=== PATIENT | female | born 1985 | race Caucasian/White ===

== ENCOUNTER 2024-01-22 14:59 | Outpatient (OUT) | payer MEDICAID, SELFPAY ==
[2024-01-22 15:18] LABS: Basophils Percent Auto 0.7 % (0.2-2.0); Eosinophils Percent Auto 0.7 % (0.9-7.0); Hematocrit 36.7 % (36.0-48.0); Hemoglobin 12.2 g/dL (12.0-16.0); Immature Granulocytes Abs Auto 0.02 10^3/uL (0.00-0.03); Immature Granulocytes Pct Auto 0.3 % (0.0-0.5); Lymphocytes Absolute Auto 1.8 10^3/uL (1.2-3.8); Lymphocytes Percent Auto 31.4 % (20.5-60.0); Mean Corpuscular HGB Conc 33.2 g/dL (29.9-35.2); Mean Corpuscular Hemoglobin 29.9 pg (26.7-34.0); Mean Platelet Volume 9.3 fL (9.5-13.5); Monocytes Absolute Auto 0.4 10^3/uL (0.3-0.8); Monocytes Percent Auto 7.4 % (1.7-12.0); Neutrophils Absolute Auto 3.5 10^3/uL (1.4-6.5); Neutrophils Percent Auto 59.5 % (43.0-75.0); Platelet Count 313 10^3/uL (150-450); Red Blood Count 4.08 10^6/uL (4.20-5.40); Red Cell Distribution Width 12.6 % (11.0-15.0); White Blood Count 5.8 10^3/uL (4.0-11.0)
[2024-01-22 15:43] LABS: INR 1.07; Partial Thromboplastin Time 28.5 sec (22.3-36.2); Prothrombin Time 11.3 sec (9.0-11.6)
[2024-01-22 16:27] LABS: Thyroid Stimulating Hormone 1.086 uIU/mL (0.358-3.740)
[2024-01-22 16:30] LABS: HCG Quantitative <1 mIU/mL
[2024-01-22 16:34] LABS: Estimated Average Glucose 103 mg/dL; Free T4 0.84 ng/dL (0.76-1.46); Glycohemoglobin A1C 5.2 % (4.5-6.2)
== END 2024-01-22 15:00 | disposition home or self-care (01) ==
LOC: LAB 15:02
PROVIDERS: PCP Nurse Practitioner Family; Visit Provider Obstetrics & Gynecology
DX: Z01.419 Encounter for gynecological examination (general) (routine) without abnormal findings (principal); N92.0 Excessive and frequent menstruation with regular cycle
CPT/HCPCS: 36415; 83036; 84439; 84443; 84702; 85025; 85610; 85730

== ENCOUNTER 2024-01-22 18:21 | Outpatient (REF) | payer MEDICAID, SELFPAY | END 2024-01-22 18:22 | disposition home or self-care (01) | LOC: LAB 18:21 | PROVIDERS: PCP Nurse Practitioner Family; Visit Provider Physician Assistant | DX: Z01.419 Encounter for gynecological examination (general) (routine) without abnormal findings (principal) | CPT/HCPCS: 88175 ==

== ENCOUNTER 2024-01-24 11:00 | Outpatient (OUT) | payer MEDICAID, SELFPAY ==
--- NOTE | 2024-01-24 11:03 | US_ITS ---
[address] [address] Patient Name: ALBINO DAVILA MRN: [id number] date: 1985 Sex: F Assigned Patient Location: US Current Patient Location: Accession/Order Number: [id number] Exam Date: 01/24/2024 11:05 Report Date: 01/27/2024 09:05 At the request of: PERLA MONTEIRO Procedure: US pelvis w/ transvaginal EXAMINATION: US pelvis w/ transvaginal HISTORY: Menorrhagia with regular cycle N92.0 COMPARISON: No relevant comparison available. TECHNIQUE: Transabdominal and/or transvaginal sonographic examination was performed as indicated by examination type. FINDINGS: UTERUS: Normal size and appearance. Uterus size: 10.0 x 4.7 x 7.2 cm ENDOMETRIUM: Slightly thickened and heterogeneous containing several small hyperechoic areas, possibly calcifications. Endometrial thickness: 19 mm RIGHT OVARY: Normal size and appearance. Duplex Doppler demonstrates normal waveform and flow; resistive index 0.6. Ovary size: 2.8 x 2.3 x 1.67 m LEFT OVARY: Normal size and appearance. Duplex Doppler demonstrates normal waveform and flow; resistive index 0.6. Ovary size: 3.5 x 2.3 x 1.3 cm CUL-DE-SAC: Unremarkable. No significant free fluid. BLADDER: Unremarkable. OTHER: None. US/US pelvis w/ transvaginal IMPRESSION: 1. Thickened heterogeneous endometrium; nonspecific. Endometrial hyperplasia? 2. Unremarkable ovaries. Electronically authenticated by: ROMI SMITH Date: 01/27/2024 09:05
--- OUTSIDE RECORDS SUMMARY | 2024-01-24 11:03 | XMS_ITS | CCD ---
Author Organization [facility] Care Team Providers Care Tray Drier Operator Name Role Phone Eli Collazo Unavailable RIA, DR ROMANO Primary Care Unavailable WEST, DR GORDY Garcia Attending Unavailable WEST, DR GORDY Garcia Consulting Unavailable WEST, DR GORDY Garcia Admitting Unavailable LUIS, ANDRZEJ Schulz Consulting Unavailable DRIFT, DR ROMANO Primary Care Unavailable KARMONICA ., DR COLINDRES Consulting Unavailabl e KARMONICA ., DR COLINDRES Admitting Unavailabl e KARMONICA ., DR COLINDRES Attending Unavailabl e HOUSE, DR ROMANO Primary Care Unavailable WEST, DR GORDY Garcia Admitting Unavailable WEST, DR GORDY Garcia Attending Unavailable WEST, DR GORDY Garcia Consulting Unavailable HOUSE, DR ROMANO Primary Care Unavailable WEST, DR GORDY Garcia Admitting Unavailable WEST, DR GORDY Garcia Attending Unavailable WEST, DR GORDY Garcia Consulting Unavailable LUIS, ANDRZEJ Schulz Consulting Unavailable DRIFT, DR ROMANO Primary Care Unavailable ANGE ., TORRES Attending Unavailable ANGE ., TORRES Admitting Unavailable ANGE ., TORRES Consulting Unavailable DRIFT, DR ROMANO Primary Care Unavailable DRIFT, DR ROMANO Attending Unavailable HOUSE, DR ROMANO Admitting Unavailable HOUSE, DR ROMANO Primary Care Unavailable WEST, DR GORDY Garcia Admitting Unavailable WEST, DR GORDY Garcia Attending Unavailable WEST, DR GORDY Garcia Consulting Unavailable HOUSE, DR ROMANO Primary Care Unavailable WEST, DR GORDY Garcia Admitting Unavailable WEST, DR GORDY Garcia Attending Unavailable WEST, DR OGRDY Garcia Consulting Unavailable LUIS, ANDRZEJ Schulz Consulting Unavailable HOUSE, DR ROMANO Primary Care Unavailable WEST, DR GORDY Garcia Admitting Unavailable WEST, DR GORDY Garcia Attending Unavailable WEST, DR GORDY Garcia Consulting Unavailable ANDRZEJ العلي Consulting Unavailable HOUSE, DR ROMANO Primary Care Unavailable WEST, DR GORDY Garcia Admitting Unavailable WEST, DR GORDY Garcia Attending Unavailable WEST, DR GORDY Garcia Consulting Unavailable LUIS, ANDRZEJ Schulz Consulting Unavailable HOUSE, DR ROMANO Primary Care Unavailable WEST, DR GORDY Garcia Attending Unavailable WEST, DR GORDY Garcia Consulting Unavailable WEST, DR GORDY Garcia Admitting Unavailable HOUSE, DR ROMANO Primary Care Unavailable WEST, DR GORDY Garcia Attending Unavailable WEST, DR GORDY Garcia Consulting Unavailable WEST, DR GORDY Garcia Admitting Unavailable HOUSE, DR ROMANO Primary Care Unavailable WEST, DR GORDY Garcia Admitting Unavailable WEST, DR GORDY Garcia Attending Unavailable WEST, DR GORDY Garcia Consulting Unavailable LUIS, ANDRZEJ Schulz Consulting Unavailable DRIFT, DR ROMANO Primary Care Unavailable WEST, DR GORDY Garcia Admitting Unavailable WEST, DR GORDY Garcia Attending Unavailable WEST, DR GORDY Garcia Consulting Unavailable LUIS, ANDRZEJ Schulz Consulting Unavailable DRIFT, DR ROMANO Primary Care Unavailable WEST, DR GORDY Garcia Attending Unavailable WEST, DR GORDY Garcia Admitting Unavailable WEST, DR GORDY Garcia Consulting Unavailable DRIFT, DR ROMANO Primary Care Unavailable WEST, DR GORDY Garcia Attending Unavailable WEST, DR GORDY Garica Admitting Unavailable HOUSE, DR ROMANO Primary Care Unavailable WEST, DR GORDY Garcia Attending Unavailable WEST, DR GORDY Garcia Admitting Unavailable WEST, DR GORDY Garcia Consulting Unavailable LUIS, ANDRZEJ Schulz Consulting Unavailable DRIFT, DR ROMANO Primary Care Unavailable WEST, DR GORDY Garcia Attending Unavailable WEST, DR GORDY Garcia Admitting Unavailable WEST, DR OGRDY Garcia Consulting Unavailable JAVIEREBMINH, ANDRZEJ Schulz Consulting Unavailable DRIFT, DR ROMANO Primary Care Unavailable WEST, DR GORDY Garcia Admitting Unavailable WEST, DR GORDY Garcia Attending Unavailable WEST, DR GORDY Garcia Consulting Unavailable LUIS, ANDRZEJ Schulz Consulting Unavailable Maria Luz Ford Unavailable OLEG GUERRA Attending Unavailable Allergies Allergy Classification Reported Allergen(s) Allergy Type Date of Onset Reaction(s) Facility (2 sources) Ciprofloxacin Drug Allergy rash [facility] Other (2 sources) Ciprofloxacin Drug Allergy 5 [facility] Repository Medications Current Medications Medication Drug Class(es) Dates Sig (Normalized) Sig (Original) benzoyl peroxide 0.05 mg/mg / clindamycin phosphate 0.012 mg/mg topical gel (1 source) Lincosamide Antibacterial Clindamycin Phos-Benzoyl Perox 1.2-5 % External for 30 Days Active Completed/Discontinued Medications Medication Drug Class(es) Dates Sig (Normalized) Sig (Original) sulfacetamide sodium 100 mg/ml topical lotion (1 source) Sulfonamide Antibacterial Sulfacetamide Sodium (Acne) 10 % APPLY TO FACE EVERY NIGHT External for 30 Days Not-Taking Problems Active Problems Problem Classification Problem Date Documented Da te Episodic/Chronic Other upper respiratory disease (1 source) Allergic rhinitis, unspecified Onset: 2 Resolved: 2 Chronic Other upper respiratory infections (3 sources) Acute upper respiratory infection, unspecified; Translations: [Acute pharyngitis, unspecified] Onset: 2 Resolved: 2 Episodic Phlebitis; thrombophlebitis and thromboembolism (9 sources) Phlebitis and thrombophlebitis of superficial vessels of right lower extremity; Translations: [Phlebitis and thrombophlebitis of superficial vessels of left lower extremity] Onset: 3 Episodic Unclassified (1 source) ACUTE CANDIDIASIS VULVA AND VAGINA; Translations: [ACUTE CANDIDIASIS VULVA AND VAGINA] Onset: 2 Varicose veins of lower extremity (5 sources) Varicose veins of bilateral lower extremities with pain; Translations: [VARICOSE VNS MIKE LOW EXTREM W/PAIN] Onset: 3 Episodic Past or Other Problems Problem Classification Problem Date Documented Date Episodic/Chronic Immunizations and screening for infectious disease (2 sources) Contact with and (suspected) exposure to other viral communicable diseases; Translations: [Encounter for screening for human papillomavirus (HPV)] Onset: 11-06-2021 Resolved: 11-06-2021 Episodic Inflammatory diseases of female pelvic organs (1 source) Inflammatory disease of cervix uteri; Translations: [INFLAMMATORY DISEASE CERVIX UTERI] Onset: 03-22-2022 Episodic Mycoses (1 source) Candidiasis of vulva and vagina; Translations: [CANDIDIASIS OF VULVA AND VAGINA] Onset: 03-22-2022 Episodic Other aftercare (4 sources) Encounter for surgical aftercare following surgery on the circulatory system; Translations: [ENC SURG AFTRCARE FLW SURG CIRC SYS] Onset: 07-01-2022 Episodic Other female genital disorders (1 source) Other specified noninflammatory disorders of vagina; Translations: [OTH SPEC NONINFLAMMATORY D/O VAGINA] Onset: 04-04-2022 Episodic Other inflammatory condition of skin (3 sources) Pruritus vulvae; Translations: [PRURITUS VULVAE] Onset: 03-20-2022 Episodic Other screening for suspected conditions (not mental disorders or infectious disease) (4 sources) Encounter for screening for malignant neoplasm of cervix; Translations: [ENC SCREENING MALIG NEOPLASM CERV] Onset: 04-02-2022 Episodic Screening and history of mental health and substance abuse codes (1 source) Personal history of nicotine dependence; Translations: [PERSONAL HISTORY OF NICOTINE DEPEND] Onset: 03-22-2022 Episodic Sprains and strains (4 sources) Strain of other muscles, fascia and tendons at shoulder and upper arm level, left arm, subsequent encounter; Translations: [STRN OTH MSC F TEND SHLDR UA LA SUB] Onset: 01-01-2022 Episodic Results Test Name Value Interpretation Reference Range Facility Quick Strepon 11-19-2022 S. pyogenes Org specific cx Ql (Throat) Negative [facility] App Other Quick Strep [facility] Other VC CONSULT FOLLOWUPon 2022 VC CONSULT FOLLOWUP Patient: ESDRAS DAVILA Exam Date: 10/23/2022 : 1985 Gender:F Ordering : DR GORDY KNOWLES M.D. Admission #: [id number] Family : Order #: [id number] CLICK HERE TO VIEW EXAM RADIOLOGY REPORT PROCEDURE: VEIN CENTER CONSULTATION FOLLOWUP VEIN CENTER - OFFICE VISIT FOLLOW UP COMPARISON: VC CONSULT FOLLOWUP, 10/07/2022. VC CONSULT FOLLOWUP, 09/30/2022. PROGRESS NOTES: The patient reports no significant problem following microfoam ablation. The patient did not require analgesics. The patient has worn compression stockings as directed. The patient has followed our recommendations to walk 20-30 minutes once or twice per day since the procedure. Physical exam demonstrates multiple thrombosed varicose veins. Few residual small veins noted. No areas of erythema or. The patient does have some hemosiderin staining. The patient was counseled on use of sun screen and sun avoidance to permanent staining. No active ulceration Review of the ultrasound performed the same day demonstrates occlusive thrombus extending throughout the treated right leg veins. A 15 cm segment of deep vein thrombus is identified within the anterior right posterior tibial vein. This was 1 of 2 posterior tibial veins. The thrombus was 8 cm from the popliteal junction. Given the significant distance from the popliteal junction, conservative treatment with 325 milligrams of enteric coated aspirin per day was recommended the patient with a follow-up ultrasound in 2 weeks. Patient was asked to call or return for any symptoms IMPRESSION: 1. Successful ablation of incompetent right leg varicose veins 2. Segment of deep vein thrombus in the right posterior tibial vein, 8 cm from the popliteal vein PLAN: 325 milligram enteric coated aspirin once per day Follow-up ultrasound in 2 weeks Nurse notes, history and physical were reviewed and confirmed, see attached forms. The nurse was present throughout the physical exam and consultation Dictated by: Gordy Knowles MD on 10/23/2022 at 15:10 Approved by: Gordy Knowles MD on 10/23/2022 at 15:16 Normal [facility] VC EXT VENOUS RT LIMITEDon 0 10-23-2022 VC EXT VENOUS RT LIMITED Patient: ALBINO DAVILA Exam Date: 10/23/2022 : 1985 Gender:F Ordering : DR GORDY KNOWLES M.D. Admission #: [id number] Family : Order #: [id number] CLICK HERE TO VIEW EXAM RADIOLOGY REPORT PROCEDURE: VEIN CENTER EXTREMITY VENOUS RIGHT LIMITED COMPARISON: VC EXT VENOUS RT LIMITED, 09/23/2022. VC EXT VENOUS RT LIMITED, 06/13/2022. INDICATIONS: Phlebitis and thrombophlebitis of superficial veins of right lower extremity I80.01 TECHNIQUE: Lower extremity low scale and Duplex Doppler evaluation of the deep venous system from the inguinal ligament through the calf veins. FINDINGS: REGION: Right lower extremity. THROMBI: Thrombus identified in the anterior posterior tibial vein measuring 15 cm in length, 8 cm from the saphenous popliteal junction. Additional thrombus related to injections COMPRESSIBILITY: Non-compressible segments corresponding thrombus. FLOW: Absent flow corresponding to thrombus OTHER: No patent varicose veins remain. *Exam performed in accordance with [facility] practice guidelines- Peripheral venous ultrasound, September 16, 2009. CONCLUSION: 15 cm length deep vein thrombus anterior of 2 posterior tibial veins, 8 cm from the popliteal junction Dictated by: Gordy Knowles MD on 10/23/2022 at 14:43 Approved by: Gordy Knowles MD on 10/23/2022 at 14:45 Normal [facility] VC INJ FOAM SCLERO W US MLTI on 10-14-2022 VC INJ FOAM SCLERO W US MLTI Patient: ALBINO DAVILA Exam Date: 10/14/2022 : 1985 Gender:F Ordering : DR GORDY KNOWLES M.D. Admission #: [id number] Family : Order #: [id number] CLICK HERE TO VIEW EXAM RADIOLOGY REPORT PROCEDURE: VEIN CENTER INJECTION FOAM SCLEROSING SOLUTION WITH ULTRASOUND MULTIPLE VEINS COMPARISON: VC INJ FOAM SCLERO W US MLTI, 10/01/2022. Pre-operative Diagnosis: CEAP class C2 venous insufficiency with pain, tenderness, edema and incompetent right great saphenous vein and varicose veins, chronic venous insufficiency right leg secondary to venous incompetence Post-operative Diagnosis: CEAP class C2 venous insufficiency with pain, tenderness, edema and incompetent right great saphenous vein and varicose veins, chronic venous insufficiency right leg secondary to venous incompetence Procedure Performed: 1. Ultrasound-guided microfoam chemical ablation with Varithena(r) 2. Intraoperative ultrasound guidance Physician: Gordy Knowles M.D. Anesthesia: None Indications for Procedure: 36 year old female. Muscle cramps and pain despite conservative medical therapy including medical compression stockings, exercise and analgesics. Prior procedures include endovenous laser ablation. Multiple incompetent varicosities of the right leg. Duplex scan showed reflux and enlarged diameters up to 7 mm. The patient underwent informed consent including management options where the complications of infection, bleeding, pain, and skin injury were discussed. Particular attention was spent discussing thrombus extension and deep vein thrombosis as well as the possibility of pulmonary embolus and treatment with oral or injectable blood thinners. Procedure: The patient walked to the procedure room. All applicable staff donned appropriate apparel. A procedure timeout was performed to confirm correct patient, correct extremity, correct procedure, and correct room set-up including presence of all applicable supplies, devices, and drugs. A duplex ultrasound, performed by myself confirmed the location and incompetence of right leg varicose veins and their course marked on the skin together with the dilated tributaries. The extent of treatment of the vein and the associated varicosities was determined through ultrasound mapping. The patient was placed on the operating room table. The limb was prepped. The skin was punctured with a butterfly needle through the skin with the venous access needle and advanced under ultrasound guidance. The target limb was positioned at 45 degrees of elevation in relation to the torso using a foam pad. The Varithena(r) canister was previously activated and the canister was primed and purged as required in the instructions for use. The following injections were made: 4 mL aliquot of Varithena(r) was drawn into a sterile syringe. Injection into a 5 mm varicose vein lateral mid right lower leg. 6 mL aliquot of Varithena(r) was drawn into a sterile syringe. Injection into a 7 mm varicose vein lateral distal medial right thigh 4 mL aliquot of Varithena(r) was drawn into a sterile syringe. Injection into a 4mm varicose vein medial distal right lower leg. Varithena(r) was slowly administered at 0.5-1.0 cc/second with close observation by ultrasound of its course in the injected veins. A total volume of 14 mL of Varithena(r) was used. During administration of Varithena(r), the patient was asked to dorsiflex the ankle to limit flow of Varithena(r) into perforating veins. Once appropriate spasm had been confirmed in the treated veins, the vascular catheter was removed from the leg and light pressure was applied over the puncture site for hemostasis The common femoral and deep superficial veins were then evaluated for flow and compressibility prior to dressing placement. The lower extremity was kept elevated at 45 degrees above the horizontal and cording material was applied over the saphenous segments and tributaries to allow for eccentric compression over the target vessels including the targeted saphenous vein(s). A multilayer dressing was applied consisting of foam pads, coban and thigh-high 20-30 mm Hg compression elastic support hose were placed on the patient. The leg was lowered only after compression had been applied and the patient was immediately ambulatory. The patient ambulated 10 minutes under supervision and was without apparent concerns at time of release Post-care instructions include advising patient to keep post-treatment bandages in place and dry for 48 hours, avoid extended periods of inactivity, avoid heavy exercise for one week, wear compression stockings on the treated leg continuously for two weeks, to walk daily for 10 minutes over the next month. The patient was instructed to take an anti-inflammatory medicine as needed and to follow up for color duplex scan of the GSV, the treated superficial varices, the adjacent deep veins, and tom (more content not included)... Normal [facility] VC CONSULT FOLLOWUPon 2022 VC CONSULT FOLLOWUP Patient: ESDRAS DAVILARyanne Exam Date: 10/07/2022 : 1985 Gender:F Ordering : DR GORDY KNOWLES M.D. Admission #: [id number] Family : Order #: [id number] CLICK HERE TO VIEW EXAM RADIOLOGY REPORT PROCEDURE: VEIN CENTER CONSULTATION FOLLOWUP VEIN CENTER - OFFICE VISIT FOLLOW UP COMPARISON: VC CONSULT FOLLOWUP, 09/30/2022. VC CONSULT FOLLOWUP, 09/23/2022. PROGRESS NOTES: The patient reports no significant problems following micro foam chemical ablation of the left leg. Patient did not require oral analgesics. The patient has worn her compression stockings. The patient has followed our recommendations to walk 20-30 minutes once or twice per day since the procedure. The patient reports significant improvement in left leg symptoms compared to her initial presentation. The patient does complain of a persistent varicose vein along the anterior left thigh and knee. Review of the ultrasound performed the same day demonstrates occlusive thrombus extending throughout the treated left leg varicose veins with a residual varicose vein measuring 3.7 mm. The patient expressed a desire to proceed with treatment of varicose veins with micro foam chemical ablation. IMPRESSION: 1. Successful ablation of incompetent left leg varicose veins 2. Persistent incompetent bilateral varicose veins PLAN: Micro foam chemical ablation right leg incompetent varicose veins Nurse notes, history and physical were reviewed and confirmed, see attached forms. The nurse was present throughout the physical exam and consultation Dictated by: Gordy Knowles MD on 10/07/2022 at 08:46 Approved by: Gordy Knowles MD on 10/07/2022 at 08:52 Normal [facility] VC EXT VENOUS LT LIMITEDon 0 10-07-2022 VC EXT VENOUS LT LIMITED Patient: ALBINO DAVILA Exam Date: 10/07/2022 : 1985 Gender:F Ordering : DR GORDY KNOWLES M.D. Admission #: [id number] Family : Order #: [id number] CLICK HERE TO VIEW EXAM RADIOLOGY REPORT PROCEDURE: VEIN CENTER EXTREMITY VENOUS LEFT LIMITED COMPARISON: VC EXT VENOUS LT LIMITED, 09/30/2022. VC EXT VENOUS LT LIMITED, 09/16/2022. INDICATIONS: Phlebitis of superficial veins of lower extremity I80.02 TECHNIQUE: Lower extremity low scale and Duplex Doppler evaluation of the deep venous system from the inguinal ligament through the calf veins. FINDINGS: REGION: Left lower extremity. THROMBI: Negative for DVT. Varithena induced thrombus visualized at anterior knee and mid/medial thigh. COMPRESSIBILITY: Non-compressible segments corresponding to thrombus. FLOW: Absent flow corresponding to thrombus OTHER: Patent varicose vein at prox/med calf 3.7mm with 0.8s reflux. *Exam performed in accordance with [facility] practice guidelines- Peripheral venous ultrasound, September 16, 2009. CONCLUSION: Post ablation occlusion of treated left leg varicose veins Dictated by: Gordy Knowles MD on 10/07/2022 at 08:13 Approved by: Gordy Knowles MD on 10/07/2022 at 08:14 Normal [facility] VC INJ FOAM SCLERO W US MLTI on 10-01-2022 VC INJ FOAM SCLERO W US MLTI Patient: ALBINO DAVILA Exam Date: 10/01/2022 : 1985 Gender:F Ordering : DR GORDY KNOWLES M.D. Admission #: [id number] Family : Order #: [id number] CLICK HERE TO VIEW EXAM RADIOLOGY REPORT PROCEDURE: VEIN CENTER INJECTION FOAM SCLEROSING SOLUTION WITH ULTRASOUND MULTIPLE VEINS COMPARISON: VC COMP CONSULTATION, 05/15/2022. Pre-operative Diagnosis: CEAP class C2 venous insufficiency with pain, tenderness, edema and incompetent branch saphenous vein, chronic venous insufficiency left leg secondary to venous incompetence Post-operative Diagnosis: CEAP class C2 venous insufficiency with pain, tenderness, edema and incompetent branch saphenous vein, chronic venous insufficiency left leg secondary to venous incompetence Procedure Performed: 1. Ultrasound-guided microfoam chemical ablation with Varithena(r) 2. Intraoperative ultrasound guidance Physician: Andrzej العلي M.D. Anesthesia: None. Indications for Procedure: 36 year old female. Symptoms including muscle cramping, dilated veins for many years despite conservative medical therapy including medical compression stockings, exercise and analgesics. Prior procedures include: Endovenous laser ablation. Multiple incompetent varicosities of the left leg. Duplex scan showed reflux and enlarged diameters up to 4 mm. The patient has undergone informed consent including management options where the complications of infection, bleeding, pain, and skin injury were discussed. Particular attention was spent discussing thrombus extension and deep vein thrombosis as well as the possibility of pulmonary embolus and treatment with oral or injectable blood thinners. Procedure: The patient walked to the procedure room. All applicable staff donned appropriate apparel. A procedure timeout was performed to confirm correct patient, correct extremity, correct procedure, and correct room set-up including presence of all applicable supplies, devices, and drugs. A duplex ultrasound, performed by myself confirmed the location and incompetence of branch saphenous varicosities and their course was marked on the skin together with the dilated tributaries. The extent of treatment of the veins and the associated varicosities was determined through ultrasound mapping. The skin was prepped and then punctured with a butterfly needle and advanced under ultrasound guidance. The Varithena(r) canister was activated and the canister was primed and purged as required in the instructions for use. Varithena(r) was drawn into a sterile syringe. Varithena(r) was slowly administered at 0.5-1.0 cc/second with close observation by ultrasound of its course in the vessels. Total volume utilized was: 8 mL (4 Negrita within a 3 mm incompetent varicosity anterior to the knee; 4 Negrita within a 4 mm varicosity anterior medial mid left thigh). Following administration of Varithena(r), the leg was elevated and the patient was asked to repeatedly dorsiflex the ankle to limit flow of Varithena(r) into perforating veins. Once appropriate spasm had been confirmed in the treated veins, the vascular catheter was removed from the leg and light pressure was applied over the puncture site for hemostasis The common femoral and deep superficial veins were then evaluated for flow and compressibility prior to dressing placement. The lower extremity was kept elevated at 45 degrees above the horizontal and cording material was applied over the saphenous segments and tributaries to allow for eccentric compression over the target vessels including the targeted saphenous vein(s). A multilayer dressing was applied consisting of foam pads, coban and thigh-high 20-30 mm Hg compression elastic support hose were placed on the patient. The leg was lowered only after compression had been applied and the patient was immediately ambulatory. The patient ambulated 10 minutes under supervision and was without apparent concerns at time of release Post-care instructions include advising patient to keep post-treatment bandages in place and dry for 48 hours, avoid extended periods of inactivity, avoid heavy exercise for one week, wear compression stockings on the treated leg continuously for two weeks, to walk daily for 10 minutes over the next month. The patient was instructed to take an anti-inflammatory medicine as needed and to follow up for color duplex scan of the Saphenous veins, the treated branch saphenous varicosities, the adjacent deep veins, and additional treatment within 7 days. PERSONNEL: Estrada Campos R.N. Dictated by: Andrzej العلي M.D. on 10/01/2022 at 12:00 Approved by: Andrzej العلي M.D. on 10/01/2022 at 12:03 Normal [facility] VC CONSULT FOLLOWUPon 2022 VC CONSULT FOLLOWUP Patient: ESDRAS DAVILA Exam Date: 09/30/2022 : 1985 Gender:F Ordering : DR GORDY KNOWLES M.D. Admission #: [id number] Family : Order #: [id number] CLICK HERE TO VIEW EXAM RADIOLOGY REPORT PROCEDURE: VEIN CENTER CONSULTATION FOLLOWUP VEIN CENTER - OFFICE VISIT FOLLOW UP COMPARISON: VC CONSULT FOLLOWUP, 09/23/2022. PROGRESS NOTES: The patient reports improvement in bilateral leg symptoms. There has been interval reduction in varicosities. The patient has followed our recommendations to walk 20-30 minutes once or twice per day since the procedure. Physical exam demonstrates decrease in varicosities of the bilateral legs. Persistent superficial varicosities are identified along the legs bilaterally. Review of the ultrasound performed the same day demonstrates occlusive thrombus extending throughout the treated vein, see separate report, consistent with a successful ablation. No thrombus extending into or beyond the saphenofemoral junction. The patient expressed a desire to proceed with treatment of incompetent branch saphenous varicosities. The patient was informed that treatment was a process and would require several procedures/sessions. IMPRESSION: 1. Successful ablation of the left small saphenous vein 2. 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 Nurse notes, history and physical were reviewed and confirmed, see attached forms. The nurse was present throughout the physical exam and consultation Dictated by: Andrzej العلي M.D. on 09/30/2022 at 14:22 Approved by: Andrzej العلي M.D. on 09/30/2022 at 14:24 Normal [facility] VC EXT VENOUS LT LIMITEDon 0 09-30-2022 VC EXT VENOUS LT LIMITED Patient: ALBINO DAVILA Exam Date: 09/30/2022 : 1985 Gender:F Ordering : DR GORDY KNOWLES M.D. Admission #: [id number] Family : Order #: [id number] CLICK HERE TO VIEW EXAM RADIOLOGY REPORT PROCEDURE: VEIN CENTER EXTREMITY VENOUS LEFT LIMITED COMPARISON: VC EXT VENOUS LT LIMITED, 09/16/2022. INDICATIONS: Phlebitis and thrombophlebitis of superficial veins of left lower extremity I80.02 TECHNIQUE: Lower extremity low scale and Duplex Doppler evaluation of the deep venous system from the inguinal ligament through the calf veins. FINDINGS: REGION: Left lower extremity. THROMBI: Negative for DVT. Heat induced thrombus in left SSV 3.3 mm from SPJ and extends to mid calf at insert. COMPRESSIBILITY: Non-compressible segments. FLOW: Areas of no flow. OTHER: CONCLUSION: 1. Successful post ablation occlusion of left small saphenous vein. Dictated by: Andrzej العلي M.D. on 09/30/2022 at 14:21 Approved by: Andrzej العلي M.D. on 09/30/2022 at 14:22 Normal [facility] VC ENDOVENOUS ABL 1ST V LTon 09-27-2022 VC ENDOVENOUS ABL 1ST V LT Patient: ALBINO DAVILA Exam Date: 09/27/2022 : 1985 Gender:F Ordering : DR GORDY KNOWLES M.D. Admission #: [id number] Family : Order #: [id number] CLICK HERE TO VIEW EXAM RADIOLOGY REPORT PROCEDURE: VEIN CENTER ENDOVENOUS ABLATION FIRST VEIN LEFT SMALL SAPHENOUS VEIN COMPARISON: VC ENDOVENOUS ABL 1ST V LT, 09/10/2022. VC ENDOVENOUS ABL 1ST V LT, 06/28/2022. INDICATIONS: Pain co-occurrent and due to varicose veins of bilateral legs I83.813 OPERATIVE REPORT: The risks and benefits of the procedure had been previously discussed, and were rediscussed at length. Informed written consent was obtained by and Estrada mina. Time out procedure was performed. The left lower extremity was prepared and draped in the usual sterile fashion. Duplex ultrasound probe was draped in a sterile cover, sterile transmission gel was used. Venous mapping was performed with the areas of dilation and large tributaries marked. The total length was 25 cm from the entry 3 cm above the lateral malleolus to where the vein begins to dive deep into the popliteal. The diameter of the small saphenous vein ranged from 5-7 mm. A 30 gauge needle and 1% buffered lidocaine was used to anesthetize the entry site. A 4 mm incision was made with a scalpel and the saphenous vein was entered percutaneously under direct ultrasound guidance with a micropuncture set, a single stick was successful in gaining access. A micro-guide wire was inserted and the needle removed. A micro-set including a dilator was inserted over the microwire and the needle and dilator were removed. A 0.018 guide wire was inserted through the micro-set and threaded through the saphenous vein. The dilator was removed and an introducer sheath was inserted over the wire. The dilator and wire were removed and the 600 micron fiber was introduced and placed and positioned so that it extended beyond the sheath. Final position of the fiber was determined by ultrasound guidance and duplex imaging. Tumescent anesthetic was delivered by ultrasound guidance. 100 cc of fluid was delivered along the entire course of the saphenous vein. The solution consisted of 500 cc of normal saline with 20mL of 1% lidocaine and 10 mL of sodium bicarbonate. A final positioning check was made. The energy source was turned on by means of the foot pedal and the fiber and sheath were withdrawn. The total number of Joules delivered was 1183. The laser was active for 148 seconds under continuous pulse, average laser use of 8 J. Laser start time 1:01 p.m. September 27, 2022. Laser stop time 1:04 p.m. September 27, 2022. A duplex ultrasound revealed compressibility and flow at the saphenofemoral junction immediately after the procedure. Hemostasis at the access site was achieved. The skin incision of the saphenous vein was closed with a 4 x 4. A compression stocking was applied. Postop instructions were given. A follow up appointment was recommended and scheduled. The patient tolerated the procedure well and was discharged in good condition. CONCLUSION: 1. Technically successful endovenous laser ablation of the left small saphenous vein. Dictated by: Gordy Knowles MD on 09/27/2022 at 13:38 Approved by: Gordy Knowles MD on 09/27/2022 at 14:34 Normal [facility] VC CONSULT FOLLOWUPon 2022 VC CONSULT FOLLOWUP Patient: ESDRAS DAVILA Exam Date: 09/23/2022 : 1985 Gender:F Ordering : DR GORDY KNOWLES M.D. Admission #: [id number] Family : Order #: [id number] CLICK HERE TO VIEW EXAM RADIOLOGY REPORT PROCEDURE: VEIN CENTER CONSULTATION FOLLOWUP VEIN CENTER - OFFICE VISIT FOLLOW UP COMPARISON: VC CONSULT FOLLOWUP, 09/16/2022. PROGRESS NOTES: The patient reports improvement in leg symptoms. There has been interval reduction in varicosities. The patient has followed our recommendations to walk 20-30 minutes once or twice per day since the procedure. Physical exam demonstrates decrease in varicosities of the right leg. Persistent varicosities are identified along the legs bilaterally. Review of the ultrasound performed the same day demonstrates occlusive thrombus extending throughout the treated vein, see separate report, consistent with a successful ablation. No thrombus extending into or beyond the saphenofemoral junction. The patient expressed a desire to proceed with treatment of remaining incompetent varicosities. The patient was informed that treatment was a process and would require several procedures/sessions. IMPRESSION: 1. Successful ablation of the right small saphenous vein 2. Persistent incompetent dilated veins and lower extremity symptoms PLAN: Endovenous laser ablation of left small saphenous vein. Nurse notes, history and physical were reviewed and confirmed, see attached forms. The nurse was present throughout the physical exam and consultation Dictated by: Andrzej العلي M.D. on 09/23/2022 at 16:00 Approved by: Andrzej العلي M.D. on 09/23/2022 at 16:02 Normal [facility] VC EXT VENOUS RT LIMITEDon 0 09-23-2022 VC EXT VENOUS RT LIMITED Patient: ALBINO DAVILA Exam Date: 09/23/2022 : 1985 Gender:F Ordering : DR GORDY KNOWLES M.D. Admission #: [id number] Family : Order #: [id number] CLICK HERE TO VIEW EXAM RADIOLOGY REPORT PROCEDURE: VEIN CENTER EXTREMITY VENOUS RIGHT LIMITED COMPARISON: VC EXT VENOUS RT LIMITED, 06/13/2022. INDICATIONS: Phlebitis and thrombophlebitis of superficial veins of right lower extremity I80.01 TECHNIQUE: Lower extremity low scale and Duplex Doppler evaluation of the deep venous system from the inguinal ligament through the calf veins. FINDINGS: REGION: Right upper extremity. THROMBI: Negative for DVT. Small saphenous vein visualized with heat induced thrombus from distal thigh to mid calf. COMPRESSIBILITY: Partial compressibility of segments. FLOW: Areas of no flow. OTHER: SSV is a thigh extension with no connection to popliteal vein CONCLUSION: 1. Successful post ablation occlusion of right small saphenous vein. Dictated by: Andrzej العلي M.D. on 09/23/2022 at 15:22 Approved by: Andrzej العلي M.D. on 09/23/2022 at 16:00 Normal [facility] ENDOVENOUS ABL 1ST V RTon 09-18-2022 VC ENDOVENOUS ABL 1ST V RT Patient: ALBINO DAVILA Exam Date: 09/18/2022 : 1985 Gender:F Ordering : DR GORDY KNOWLES M.D. Admission #: [id number] Family : Order #: [id number] CLICK HERE TO VIEW EXAM RADIOLOGY REPORT PROCEDURE: VEIN CENTER ENDOVENOUS ABLATION FIRST VEIN RIGHT SMALL SAPHENOUS VEIN COMPARISON: VC ENDOVENOUS ABL 1ST V RT, 06/10/2022. INDICATIONS: Pain co-occurrent and due to varicose veins of bilateral legs I83.813 OPERATIVE REPORT: The risks and benefits of the procedure had been previously discussed, and were rediscussed at length. Informed written consent was obtained by tn and Estrada Campos assisted. Time out procedure was performed. The right lower extremity was prepared and draped in the usual sterile fashion. Duplex ultrasound probe was draped in a sterile cover, sterile transmission gel was used. Venous mapping was performed with the areas of dilation and large tributaries marked. The total length was 24 cm from the entry mid to distal calf to wear the vein begins to dive deep through the muscle fascia, this was a thigh extension. The diameter of the small saphenous vein ranged from 4-7 mm. A 30 gauge needle and 1% buffered lidocaine was used to anesthetize the entry site. A 4 mm incision was made with a scalpel and the saphenous vein was entered percutaneously under direct ultrasound guidance with a micropuncture set, a single stick was successful in gaining access. A micro-guide wire was inserted and the needle removed. A micro-set including a dilator was inserted over the microwire and the needle and dilator were removed. A 0.018 guide wire was inserted through the micro-set and threaded through the saphenous vein. The dilator was removed and an introducer sheath was inserted over the wire. The dilator and wire were removed and the 600 micron fiber was introduced and placed and positioned so that it extended beyond the sheath. Final position of the fiber was determined by ultrasound guidance and duplex imaging. Tumescent anesthetic was delivered by ultrasound guidance. 100 cc of fluid was delivered along the entire course of the saphenous vein. The solution consisted of 500 cc of normal saline with 20mL of 1% lidocaine and 10 mL of sodium bicarbonate. A final positioning check was made. The energy source was turned on by means of the foot pedal and the fiber and sheath were withdrawn. The total number of Joules delivered was 1109. The laser was active for 139 seconds under continuous pulse, average laser use of 8 J. Laser start time 9:36 am 09/18/22. Laser stop time 9:39 09/18/22. A duplex ultrasound revealed compressibility and flow at the saphenofemoral junction immediately after the procedure. Hemostasis at the access site was achieved. The skin incision of the saphenous vein was closed with a 4 x 4. A compression stocking was applied. Postop instructions were given. A follow up appointment was recommended and scheduled. The patient tolerated the procedure well and was discharged in good condition. CONCLUSION: 1. Technically successful endovenous laser ablation of the right small saphenous vein. Dictated by: Gordy Knowles MD on 09/18/2022 at 09:45 Approved by: Gordy Knowles MD on 09/18/2022 at 10:04 Normal [facility] VC CONSULT FOLLOWUPon 2022 VC CONSULT FOLLOWUP Patient: ESDRAS DAVILA Exam Date: 09/16/2022 : 1985 Gender:F Ordering : DR GORDY KNOWLES M.D. Admission #: [id number] Family : Order #: [id number] CLICK HERE TO VIEW EXAM RADIOLOGY REPORT PROCEDURE: VEIN CENTER CONSULTATION FOLLOWUP VEIN CENTER - OFFICE VISIT FOLLOW UP COMPARISON: VC CONSULT FOLLOWUP, 07/01/2022. PROGRESS NOTES: The patient reports improvement in left eg symptoms. There has been interval reduction in varicosities. The patient has followed our recommendations to walk 20-30 minutes once or twice per day since the procedure. Physical exam demonstrates persistent superficial varicosities bilaterally. Review of the ultrasound performed the same day demonstrates occlusive thrombus extending throughout the treated vein, see separate report, consistent with a successful ablation. No thrombus extending into or beyond the saphenofemoral junction. The patient expressed a desire to proceed with treatment of left and right small saphenous veins and superficial branch saphenous varicosities. The patient was informed that treatment was a process and would require several procedures/sessions. IMPRESSION: 1. Successful ablation of the left anterior accessory saphenous vein 2. Persistent incompetent varicose veins and bilateral lower extremity symptoms PLAN: 1. Endovenous laser ablation of right small saphenous vein. 2. Ultrasound re-evaluation of left small saphenous vein to verify this needs treatment. 3. Microfoam chemical ablation of bilateral branch saphenous varicosities. Nurse notes, history and physical were reviewed and confirmed, see attached forms. The nurse was present throughout the physical exam and consultation Dictated by: Andrzej العلي M.D. on 09/16/2022 at 15:00 Approved by: Andrzej العلي M.D. on 09/16/2022 at 15:09 Normal [facility] VC EXT VENOUS LT LIMITEDon 0 09-16-2022 VC EXT VENOUS LT LIMITED Patient: ALBINO DAVILA Exam Date: 09/16/2022 : 1985 Gender:F Ordering : DR GORDY KNOWLES M.D. Admission #: [id number] Family : Order #: [id number] CLICK HERE TO VIEW EXAM RADIOLOGY REPORT PROCEDURE: VEIN CENTER EXTREMITY VENOUS LEFT LIMITED COMPARISON: VC EXT VENOUS LT LIMITED, 07/01/2022. INDICATIONS: Phlebitis and thrombophlebitis of superficial veins of left lower extremity I80.02 TECHNIQUE: Lower extremity low scale and Duplex Doppler evaluation of the deep venous system from the inguinal ligament through the calf veins. FINDINGS: REGION: Left lower extremity. THROMBI: Negative for DVT. Heat induced thrombus in left AASV 1.0 cm from SFJ and extends to mid thigh. COMPRESSIBILITY: Non-compressible segments. FLOW: Areas of no flow. OTHER: CONCLUSION: 1. Successful occlusion of the left anterior accessory saphenous vein. Dictated by: Andrzej العلي M.D. on 09/16/2022 at 14:59 Approved by: Andrzej العلي M.D. on 09/16/2022 at 15:00 Normal [facility] VC ENDOVENOUS ABL 1ST V LTon 09-10-2022 VC ENDOVENOUS ABL 1ST V LT Patient: ALBINO DAVILA Exam Date: 09/10/2022 : 1985 Gender:F Ordering : DR GORDY KNOWLES M.D. Admission #: [id number] Family : Order #: [id number] CLICK HERE TO VIEW EXAM RADIOLOGY REPORT PROCEDURE: VEIN CENTER ENDOVENOUS ABLATION FIRST VEIN LEFT COMPARISON: VC VENOUS REFLUX MIKE LMT, 05/15/2022. VC ENDOVENOUS ABL 1ST V LT, 06/28/2022. INDICATIONS: Pain co-occurrent and due to varicose veins of bilateral legs OPERATIVE REPORT: The risks and benefits of the procedure had been previously discussed, and were rediscussed at length. Informed written consent was obtained by me and Estrada Campos assisted. Time out procedure was performed. The left lower extremity was prepared and draped in the usual sterile fashion to allow knee flexion in the sterile field. Duplex ultrasound probe was draped in a sterile cover, sterile transmission gel was used. Venous mapping was performed with the areas of dilation and large tributaries marked. The total length was 9 cm from the entry upper anterior thigh to 3 cm below the saphenofemoral junction. The diameter of the greater saphenous vein ranged from 10 mm. A 30 gauge needle and 1% buffered lidocaine was used to anesthetize the entry site. A 4 mm incision was made with a scalpel and the saphenous vein was entered percutaneously under direct ultrasound guidance with a micropuncture set, a single stick was successful in gaining access. A micro-guide wire was inserted and the needle removed. A micro-set including a dilator was inserted over the microwire and the needle and dilator were removed. A 0.018 guide wire was inserted through the micro-set and threaded through the saphenous vein to the saphenofemoral junction. The dilator was removed and an introducer sheath was inserted over the wire until the end of the sheath entered the saphenofemoral junction. The dilator and wire were removed and the 600 micron fiber was introduced and placed and positioned so that it extended beyond the sheath and was 3 cm peripheral to the saphenofemoral femoral junction. Final position of the fiber was determined by ultrasound guidance and duplex imaging. Tumescent anesthetic was delivered by ultrasound guidance. 1 minutes 25 cc of fluid was delivered along the entire course of the saphenous vein. The solution consisted of 500 cc of normal saline with 20mL of 1% lidocaine and 10 mL of sodium bicarbonate. A final positioning check was made. The energy source was turned on by means of the foot pedal and the fiber and sheath were withdrawn. The total number of Joules delivered was 445. The laser was active for 56 seconds under continuous pulse, average laser use of 8 J. Laser start time 9:14 a.m. September 10, 2022. Laser stop time 9:15 a.m. September 10, 2022. A duplex ultrasound revealed compressibility and flow at the saphenofemoral junction immediately after the procedure. Hemostasis at the access site was achieved. The skin incision of the saphenous vein was closed with a 4 x 4. A compression stocking was applied. Postop instructions were given. A follow up appointment was recommended and scheduled. The patient tolerated the procedure well and was discharged in good condition. CONCLUSION: 1. Technically successful endovenous laser ablation of the left anterior accessory saphenous vein. Dictated by: Andrzej العلي M.D. on 09/10/2022 at 09:32 Approved by: Andrzej العلي M.D. on 09/10/2022 at 09:34 [facility] VC CONSULT FOLLOWUPon 2022 VC CONSULT FOLLOWUP Patient: ESDRAS DAVILA Exam Date: 07/01/2022 : 1985 Gender:F Ordering : DR GORDY KNOWLES M.D. Admission #: [id number] Family : Order #: [id number] CLICK HERE TO VIEW EXAM RADIOLOGY REPORT PROCEDURE: VEIN CENTER CONSULTATION FOLLOWUP VEIN CENTER - OFFICE VISIT FOLLOW UP COMPARISON: VC CONSULT FOLLOWUP, 06/13/2022. PROGRESS NOTES: The patient reports no significant pain following intravenous laser ablation of the left great saphenous vein. The patient did analgesics. The patient compression stockings. The patient has followed our recommendations to walk 20-30 minutes once or twice per day since the procedure. Physical exam demonstrates a large area of bruising measuring approximately 20 x 8 cm along the medial left thigh likely related to tumescence injection. Thrombosed left great saphenous vein can be palpated along the thigh. No areas of erythema warmth to suggest cellulitis or thrombophlebitis. No active ulceration Review of the ultrasound performed the same day demonstrates occlusive thrombus extending throughout the treated left great saphenous vein with heat induced thrombus 1.6 cm from the saphenofemoral junction. The patient expressed a desire to proceed with treatment of incompetent left anterior accessory saphenous vein with intravenous laser ablation. IMPRESSION: 1. Successful ablation of the left great saphenous vein 2. Persistent incompetent left anterior accessory saphenous vein PLAN: Intravenous laser ablation left anterior accessory saphenous vein Nurse notes, history and physical were reviewed and confirmed, see attached forms. The nurse was present throughout the physical exam and consultation Dictated by: Gordy Knowles MD on 07/01/2022 at 14:58 Approved by: Gordy Knowles MD on 07/01/2022 at 14:59 Normal [facility] VC EXT VENOUS LT LIMITEDon 0 07-01-2022 VC EXT VENOUS LT LIMITED Patient: ALBINO DAVILA Exam Date: 07/01/2022 : 1985 Gender:F Ordering : DR GORDY KNOWLES M.D. Admission #: [id number] Family : Order #: [id number] CLICK HERE TO VIEW EXAM RADIOLOGY REPORT PROCEDURE: VEIN CENTER EXTREMITY VENOUS LEFT LIMITED COMPARISON: None. INDICATIONS: Phlebitis and thrombophlebitis of superficial veins of left lower extremity I80.02 TECHNIQUE: Lower extremity low scale and Duplex Doppler evaluation of the deep venous system from the inguinal ligament through the calf veins. FINDINGS: REGION: Left lower extremity. THROMBI: Negative for DVT. Heat induced thrombus in left GSV 1.6 cm from SFJ and extends to the medial left knee. COMPRESSIBILITY: Non-compressible segments corresponding to thrombus. FLOW: Absent flow corresponding to thrombus OTHER: *Exam performed in accordance with [facility] practice guidelines- Peripheral venous ultrasound, September 16, 2009. CONCLUSION: Post ablation occlusion of the left great saphenous vein with heat induced thrombus 1.6 cm from the saphenofemoral junction Dictated by: Gordy Knowles MD on 07/01/2022 at 14:20 Approved by: Gordy Knowles MD on 07/01/2022 at 14:20 Normal [facility] VC ENDOVENOUS ABL 1ST V LTon 06-28-2022 VC ENDOVENOUS ABL 1ST V LT Patient: ALBINO DAVILA Exam Date: 06/28/2022 : 1985 Gender:F Ordering : DR GORDY KNOWLES M.D. Admission #: [id number] Family : Order #: [id number] CLICK HERE TO VIEW EXAM RADIOLOGY REPORT PROCEDURE: VEIN CENTER ENDOVENOUS ABLATION FIRST VEIN LEFT GREAT SAPHENOUS VEIN COMPARISON: None. INDICATIONS: Pain co-occurrent and due to varicose veins of bilateral legs I83.813 OPERATIVE REPORT: The risks and benefits of the procedure had been previously discussed, and were rediscussed at length. Informed written consent was obtained by me and Estrada Campos assisted. Time out procedure was performed. The left lower extremity was prepared and draped in the usual sterile fashion to allow knee flexion in the sterile field. Duplex ultrasound probe was draped in a sterile cover, sterile transmission gel was used. Venous mapping was performed with the areas of dilation and large tributaries marked. The total length was 30 cm from the entry at the level of the knee to 3 cm below the saphenofemoral junction. Bifurcation of vein below this area with scarring and or valves was not amenable to treatment. The diameter of the greater saphenous vein ranged from 5-10 mm. A 30 gauge needle and 1% buffered lidocaine was used to anesthetize the entry site. A 4 mm incision was made with a scalpel and the saphenous vein was entered percutaneously under direct ultrasound guidance with a micropuncture set, a single stick was successful in gaining access. A micro-guide wire was inserted and the needle removed. A micro-set including a dilator was inserted over the microwire and the needle and dilator were removed. A 0.018 guide wire was inserted through the micro-set and threaded through the saphenous vein to the saphenofemoral junction. The dilator was removed and an introducer sheath was inserted over the wire until the end of the sheath entered the saphenofemoral junction. The dilator and wire were removed and the 600 micron fiber was introduced and placed and positioned so that it extended beyond the sheath and was 3 cm peripheral to the saphenofemoral femoral junction. Final position of the fiber was determined by ultrasound guidance and duplex imaging. Tumescent anesthetic was delivered by ultrasound guidance. 225 cc of fluid was delivered along the entire course of the saphenous vein. The solution consisted of 500 cc of normal saline with 20mL of 1% lidocaine and 10 mL of sodium bicarbonate. A final positioning check was made. The energy source was turned on by means of the foot pedal and the fiber and sheath were withdrawn. The total number of Joules delivered was 1368. The laser was active for 171 seconds under continuous pulse, average laser use of 8 J. Laser start time 13:04 June 28, 2022. Laser stop time 1308 June 28, 2022. A duplex ultrasound revealed compressibility and flow at the saphenofemoral junction immediately after the procedure. Hemostasis at the access site was achieved. The skin incision of the saphenous vein was closed with a 4 x 4. A compression stocking was applied. Postop instructions were given. A follow up appointment was recommended and scheduled. The patient tolerated the procedure well and was discharged in good condition. CONCLUSION: 1. Technically successful endovenous laser ablation of the left great saphenous vein. Dictated by: Gordy Knowles MD on 06/28/2022 at 13:09 Approved by: Gordy Knowles MD on 06/28/2022 at 13:10 Normal [facility] VC CONSULT FOLLOWUPon 2021 VC CONSULT FOLLOWUP Patient: ESDRAS DAVILA Exam Date: 06/13/2022 : 1985 Gender:F Ordering : DR GORDY KNOWLES M.D. Admission #: [id number] Family : Order #: [id number] CLICK HERE TO VIEW EXAM RADIOLOGY REPORT PROCEDURE: VEIN CENTER CONSULTATION FOLLOWUP VEIN CENTER - OFFICE VISIT FOLLOW UP COMPARISON: None. PROGRESS NOTES: The patient reports bruising within bilateral thigh regions from attempted left anterior accessory saphenous vein and completed right great saphenous vein endovenous ablation.. There has been interval reduction in varicosities. The patient has followed our recommendations to walk 20-30 minutes once or twice per day since the procedure. Physical exam demonstrates subcutaneous bruising within the anterior medial thigh regions bilaterally. Mild decrease in superficial varicosities of the right leg. Persistent varicosities are identified along the legs bilaterally. Review of the ultrasound performed the same day demonstrates occlusive thrombus extending throughout the treated vein, see separate report, consistent with a successful ablation. No thrombus extending into or beyond the saphenofemoral junction. The patient expressed a desire to proceed with treatment of incompetent, dilated veins. The patient was informed that treatment was a process and would require several procedures/sessions. IMPRESSION: 1. Successful ablation of the right great saphenous vein 2. Persistent incompetent varicose veins and lower extremity symptoms PLAN: Continue with endovenous laser ablation of left anterior accessory saphenous vein or the great saphenous vein next. Nurse notes, history and physical were reviewed and confirmed, see attached forms. The nurse was present throughout the physical exam and consultation Dictated by: Andrzej العلي M.D. on 06/13/2022 at 09:52 Approved by: Andrzej العلي M.D. on 06/13/2022 at 09:56 Normal [facility] EXT VENOUS RT LIMITEDon 1 08-14-2021 EXT VENOUS RT LIMITED Patient: ALBINO DAVILA Exam Date: 06/13/2022 : 1985 Gender:F Ordering : DR GORDY KNOWLES M.D. Admission #: [id number] Family : Order #: [id number] CLICK HERE TO VIEW EXAM RADIOLOGY REPORT PROCEDURE: VEIN CENTER EXTREMITY VENOUS RIGHT LIMITED COMPARISON: None. INDICATIONS: Phlebitis and thrombphlebitis of superficial veins of right lower extremity I80.01 TECHNIQUE: Lower extremity low scale and Duplex Doppler evaluation of the deep venous system from the inguinal ligament through the calf veins. FINDINGS: REGION: Right lower extremity. THROMBI: Negative for DVT. Heat induced thrombus visualized 2.2 cm from the SFJ. The heat induced thrombus extends from groin to knee. COMPRESSIBILITY: Non-compressible segments. FLOW: Areas of no flow. OTHER: CONCLUSION: 1. Successful post ablation occlusion of right great saphenous vein. Dictated by: Andrzej العلي M.D. on 06/13/2022 at 09:51 Approved by: Andrzej العلي M.D. on 06/13/2022 at 09:52 Normal [facility] ENDOVENOUS ABL 1ST V RTon 06-10-2022 VC ENDOVENOUS ABL 1ST V RT Patient: ALBINO DAVILA Exam Date: 06/10/2022 : 1985 Gender:F Ordering : DR GORDY KNOWLES M.D. Admission #: [id number] Family : Order #: [id number] CLICK HERE TO VIEW EXAM RADIOLOGY REPORT PROCEDURE: VEIN CENTER ENDOVENOUS ABLATION FIRST VEIN RIGHT COMPARISON: None. INDICATIONS: Pain co-occurrent and due to varicose veins of bilateral legs I83.813 OPERATIVE REPORT: The risks and benefits of the procedure had been previously discussed, and were rediscussed at length. Informed written consent was obtained by me and Estrada mina. Time out procedure was performed. The right lower extremity was prepared and draped in the usual sterile fashion to allow knee flexion in the sterile field. Duplex ultrasound probe was draped in a sterile cover, sterile transmission gel was used. Venous mapping was performed with the areas of dilation and large tributaries marked. (Treatment of the left anterior accessory saphenous vein was originally attempted, but quickly developed significant spasm preventing catheter access. Similar spasm was seen within the left great saphenous and small saphenous veins. Treatment was then switched to the right lower extremity.) The total length was 30 cm from the entry medial to the knee to 3 cm below the saphenofemoral junction. The diameter of the greater saphenous vein ranged from 7 mm. A 30 gauge needle and 1% buffered lidocaine was used to anesthetize the entry site. A 4 mm incision was made with a scalpel and the saphenous vein was entered percutaneously under direct ultrasound guidance with a micropuncture set, a single stick was successful in gaining access. A micro-guide wire was inserted and the needle removed. A micro-set including a dilator was inserted over the microwire and the needle and dilator were removed. A 0.018 guide wire was inserted through the micro-set and threaded through the saphenous vein to the saphenofemoral junction. The dilator was removed and an introducer sheath was inserted over the wire until the end of the sheath entered the saphenofemoral junction. The dilator and wire were removed and the 600 micron fiber was introduced and placed and positioned so that it extended beyond the sheath and was 3 cm peripheral to the saphenofemoral femoral junction. Final position of the fiber was determined by ultrasound guidance and duplex imaging. Tumescent anesthetic was delivered by ultrasound guidance. 2025 cc of fluid was delivered along the entire course of the saphenous vein. The solution consisted of 500 cc of normal saline with 20mL of 1% lidocaine and 10 mL of sodium bicarbonate. A final positioning check was made. The energy source was turned on by means of the foot pedal and the fiber and sheath were withdrawn. The total number of Joules delivered was 1669. The laser was active for 209 seconds under continuous pulse, average laser use of 8 J. Laser start time 9:21 a.m. June 10, 2022. Laser stop time 9:27 a.m. June 10, 2022. A duplex ultrasound revealed compressibility and flow at the saphenofemoral junction immediately after the procedure. Hemostasis at the access site was achieved. The skin incision of the saphenous vein was closed with a 4 x 4. A compression stocking was applied. Postop instructions were given. A follow up appointment was recommended and scheduled. The patient tolerated the procedure well and was discharged in good condition. CONCLUSION: 1. Technically successful endovenous laser ablation of the right great saphenous vein. Dictated by: Andrzej العلي M.D. on 06/10/2022 at 11:46 Approved by: Andrzej العلي M.D. on 06/10/2022 at 11:50 Normal [facility] VC COMP CONSULTATIONon 05-15 VC COMP CONSULTATION Patient: ALBINO DAVILA Exam Date: 05/15/2022 : 1985 Gender:F Ordering : DR GORDY KNOWLES M.D. Admission #: [id number] Family : Order #: [id number] CLICK HERE TO VIEW EXAM RADIOLOGY REPORT PROCEDURE: VC VEIN CENTER CONSULTATION VEIN CENTER - OFFICE VISIT INITIAL COMPARISON: None. PROGRESS NOTES: [age] year old female who presents with a 10 year history of bulging dilated veins, muscle cramping. The patient's leg symptoms are symmetric. There has been a progression of symptoms. This increases with prolonged leg dependency which occurs with patient's work. The patient describes an improvement with rest and elevation. The patient denies any signs and symptoms to suggest arterial ischemia. The patient describes a family history of osteoporosis, hypertension. The patient has drinking and smoking history of : None. Patient has a past medical history significant for prior right ankle surgery for fractures. The patient denies a history of deep venous thrombus or pulmonary embolus. See separate history and physical for medication list. No prior treatment for varicose or spider veins. Approximately 6 months use of compression stockings with mild relief. After review of nurse notes, history and physical exam I discussed at length the pathophysiology of venous hypertension and possible treatments, therapies and strategies available. We discussed at length the importance of elevating the lower extremities above the level of the heart, increased physical activity and compression stocking use. Ultrasound venous reflux study performed today was discussed at length with the patient. 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 PHYSICAL EXAM: The right leg demonstrates numerous large varicosities, several spider veins, no ulceration, no edema, no skin discoloration. The left leg demonstrates numerous large varicosities, several spider veins, no ulceration, no significant edema, no skin discoloration. Both thighs, legs and feet were symmetrically warm to the touch. Good posterior tibial and dorsalis pedis pulses were present bilaterally. IMPRESSION: 1. Bilateral lower extremity venous insufficiency 2. Bilateral lower extremity varicose veins 3. No significant lower extremity subcutaneous edema 4. No flow significant arterial disease 5. CEAP: C2, EP, AP, AL PLAN: 1. Continued use of compression stockings 2. Elevated legs and increased physical activity symptomatic relief 3. Endovenous laser ablation of bilateral great saphenous veins, bilateral small saphenous veins, and left anterior accessory saphenous vein. Start with left anterior accessory saphenous vein. 4. Microfoam chemical ablation of numerous bilateral incompetent branch saphenous varicosities. 5. Sclerotherapy of spider veins. Nurse notes, history and physical were reviewed and confirmed, see attached forms. The nurse was present throughout the physical exam and consultation Dictated by: Andrzej العلي M.D. on 05/15/2022 at 10:23 Approved by: Andrzej العلي M.D. on 05/15/2022 at 10:33 Normal [facility] VC VENOUS REFLUX MIKE LMTon 1 07-15-2021 VC VENOUS REFLUX MIKE LMT Patient: ALBINO DAVILA Exam Date: 05/15/2022 : 1985 Gender:F Ordering : DR GORDY KNOWLES M.D. Admission #: [id number] Family : Order #: [id number] CLICK HERE TO VIEW EXAM RADIOLOGY REPORT PROCEDURE: VEIN CENTER ULTRASOUND VENOUS REFLUX BILATERAL LIMTED COMPARISON: None. INDICATIONS: Pain co-occurrent and due to varicose veins of bilateral legs I83.813 TECHNIQUE: Duplex imaging of the lower extremity to assess the deep and superficial venous system for the presence of deep or superficial venous incompetence and to document the location and severity of disease. The study includes evaluation of the great saphenous vein (GSV), anterior accessory saphenous vein (AASV) and small saphenous vein (SSV). Patient scanned in reverse Trendelenburg and standing. FINDINGS: RIGHT LOWER EXTREMITY: Saphenofemoral Junction Reflux: Yes 9.8mm 2.7 sec GSV: Diam (mm) Reflux/ Time (sec) Proximal Thigh 6.9 Yes 2.7 Mid Thigh 6.2 Yes 3.7 Distal Thigh 6.2 Yes 1.6 Prox Calf 4.4 Yes 2.1 Mid Calf 2.5 Yes 2.8 Saphenopopliteal Junction Reflux: 5.5mm Yes 1.3 SSV: Proximal Calf 6.1 Yes 0.7 Mid Calf 2.9 Yes 0.6 AASV: Not present Proximal Thigh Mid Thigh Distal Thigh Thrombi: No acute or chronic thrombus. Compressibility: Normal. Flow: Deep venous reflux. Preforator: Dist/med calf 2.5 mm without reflux. Mid/medial calf 2.7 mm with 0.3s reflux. Tech Note: Incompetent GSV and SSV. Varicose vein mid medial thigh measures 6.6 mm with 2.7s reflux. Distal anterior thigh varicose vein measures 5.5 mm with 1.9s reflux. Varicosity medial knee measures 4.2 mm with 0.5s reflux. Lateral knee varicose vein measures 5.5 mm with 0.8s reflux. LEFT LOWER EXTREMITY: Saphenofemoral Junction Reflux: Yes 12.6 mm 3.5 sec GSV: Diam (mm) Reflux/Time (sec) Proximal Thigh 8.5 Yes 3.0 Mid Thigh 7.4 Yes 3.4 Distal Thigh 6.4 Yes 3.8 Prox Calf 6.8 Yes 1.4 Mid Calf 4.0 Yes 3.7 Saphenopopliteal Junction Relux: 7.1 mm Yes 0.9 SSV: Proximal Calf 6.4 Yes 0.7 Mid Calf 4.5 Yes 1.5 AASV: Proximal Thigh 10.1 Yes 3.4 Mid Thigh 10.9 Yes 2.2 Distal Thigh 6.8 Yes 0.7 Thrombi: No acute or chronic thrombus. Compressibility: Normal. Flow: Deep venous reflux. [employer]: Dist medial calf 4.9 mm with 1.9s reflux. Tech Note: Incompetent GSV, AASV, and SSV. Tortuous AASV mid thigh. Varicose vein mid medial lower leg measures 5.7 mm with 2.2s reflux. Mid posterior calf varicosity measures 4.5 mm with 0.8s reflux. Mid medial thigh varicose vein measures 4.1 mm with 0.6s reflux. Varicose vein lateral knee measures 2.8 mm with 0.7s reflux. CONCLUSION: 1. Abnormally dilated and incompetent bilateral great saphenous veins, bilateral small saphenous veins, and left anterior accessory saphenous vein. 2. Numerous abnormally dilated and incompetent branch saphenous varicosities bilaterally. 3. 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 4. Consultation for endovascular venous ablation is recommended. Dictated by: Andrzej العلي M.D. on 05/15/2022 at 09:59 Approved by: Andrzej العلي M.D. on 05/15/2022 at 10:23 [facility] PAP ACOG PANEL 2: 30 to 65on 04-07-2022 . . Normal [facility] Comment on above: Result Comment: Perf ormed at: BA Performed By: #### [id number] ####[facility] [address] [address]DrRyanne Lynch Age Gdln ACOG Testing 30-65 Normal [facility] Comment on above: Performed By: #### [id number] ####[facility] [address] [id number] Lynch DIAGNOSIS: Comment Normal [facility] Comment on above: Result Comment: NEGA TIVE FOR INTRAEPITHELIAL LESION OR MALIGNANCY. Performed at: BA Performed By: #### [id number] ####[facility] [address] [place] [address] [address]Dr. Saulo Lynch HPV Aptima Negative Normal Negative [facility] Comment on above: Result Comment: This nucleic acid amplification test detects fourteen high-risk HPV types (16,18,31,33,35,39,45,51,52,56,58,59,66,68) without differentiation. Performed at: =G Performed By: #### [id number] ####[facility] [address] [place], [place] [address]Dr. Saulo Lynch Methodology: Comment Normal [facility] Comment on above: Result Comment: This liquid based ThinPrep(R) pap test was screened with the use of an image guided system. Performed at: WB Performed By: #### [id number] ####[facility] [address] [place], [place] [address]DrRyanne Lynch Note: Comment Normal [facility] Comment on above: Result Comment: The Pap smear is a screening test designed to aid in the detection of premalignant and malignant conditions of the uterine cervix. It is not a diagnostic procedure and should not be used as the sole means of detecting cervical cancer. Both false-positive and false-negative reports do occur. . Performed at: WB Performed By: #### [id number] ####[facility] [address] [place], [place] [address]DrRyanne Lynch Performed by: Comment Normal [facility] Comment on above: Result Comment: Lee Ann Clifton, [employer] (ASCP) Performed at: BA Performed By: #### [id number] ####[facility] [address] [place], [place] [address]Dr. Saulo Lynch Specimen adequacy: Comment Normal [facility] Comment on above: Result Comment: Sati sfactory for evaluation. Endocervical and/or squamous metaplastic cells (endocervical component) are present. Performed at: BA Performed By: #### [id number] ####[facility] [address] [place], [place] [address]DryRanne Lynch CHLAMYDIA/GONOCOCCUS SRINIVASA (SW AB/URINE/PAPon 04-05-2022 Chlamydia trachomatis, SRINIVASA Negative Normal Negative [facility] Comment on above: Performed By: #### C T/NGNA #### [facility] [address] [address] [address] Saulo Lynch Neisseria gonorrhoeae, SRINIVASA Negative Normal Negative [facility] Comment on above: Performed By: #### C T/NGNA #### [facility] [address] [address] [address] Saulo Lynch VAGINITIS/VAGINOSIS DNA PROB Piotr 04-05-2022 Vale species Negative Normal Negative [facility] Comment on above: Performed By: #### V AGINT #### [facility] [address] [address] [address] Saulo Lynch Gardnerella vaginalis Negative Normal Negative [facility] Comment on above: Performed By: #### V AGINT #### [facility] [address] [address] [address] Saulo Lynch Trichomonas vaginalis Negative Normal Negative [facility] Comment on above: Performed By: #### V AGINT #### [facility] [address] [address] [address] Saulo Lynch CHLAMYDIA/GONOCOCCUS SRINIVASA (SW AB/URINE/PAPon 03-22-2022 Chlamydia trachomatis, SRINIVASA Negative Normal Negative [facility] Comment on above: Performed By: #### C T/NGNA ####[facility] [address] [address]DrRyanne Lynch Neisseria gonorrhoeae, SRINIVASA Negative Normal Negative [facility] Comment on above: Performed By: #### C T/NGNA ####[facility] [address] [id number]. Saulo Lynch CULTURE URINEon 03-20-2022 CULTURE URINE Culture Observations : LIGHT GROWTH OF MIXED GENITAL NESTOR. NO POTENTIAL PATHOGENS SEEN. Normal [facility] Comment on above: Performed By: #### U RCX ####[facility] [address] [address]Dr. Saulo Lynch ER URINE PROFILEon 09-28-202 2 Bilirubin Ql (U) Negative Normal NEGATIVE [facility] Comment on above: Performed By: #### E RUR, UMICRO, PREGU #### [facility] [address] [address] [address] Saulo Lynch Clarity (U) CLEAR Normal CLEAR [facility] Comment on above: Performed By: #### E RUR, UMICRO, PREGU #### [facility] [address] [address] [address] Saulo Lynch Color (U) LT. YELLOW Normal YELLOW [facility] Comment on above: Performed By: #### E RUR, UMICRO, PREGU #### [facility] [address] [address] [address] Saulo RÍOS A micrscopic examination will be performed if indicated. Normal [facility] Comment on above: Performed By: #### E RUR, UMICRO, PREGU #### [facility] [address] [address] [address] Saulo Lynch Glucose Ql (U) Negative Normal NEGATIVE [facility] Comment on above: Performed By: #### E RUR, UMICRO, PREGU #### [facility] [address] [address] [address] Saulo Lynch Hemoglobin Ql (U) Negative Normal NEGATIVE [facility] Comment on above: Performed By: #### E RUR, UMICRO, PREGU #### [facility] [address] [address] [address] Saulo Lynch Ketones Ql (U) Negative Normal NEGATIVE [facility] Comment on above: Performed By: #### E RUR, UMICRO, PREGU #### [facility] [address] [address] [address] Saulo Lynch LEUKOCYTES SMALL Abnormal NEGATIVE [facility] Comment on above: Performed By: #### E RUR, UMICRO, PREGU #### [facility] [address] [address] [address] Saulo Lynch Nitrite Ql (U) Negative Normal NEGATIVE [facility] Comment on above: Performed By: #### E RUR, UMICRO, PREGU #### [facility] [address] [address] [address] Saulo Lynch pH (U) 7.0 [pH] Normal 5-9 [facility] Comment on above: Performed By: #### E RUR, UMICRO, PREGU #### [facility] [address] [address] [address] Saulo Lynch SPEC GRAVITY 1.020 Normal 1.005-<=1.025 [facility] Comment on above: Performed By: #### Janki RUR UMICRO, PREGU #### [facility] [address] [address] [address] Saulo Lynch UA PROTEIN Negative Normal NEGATIVE/ TRACE [facility] Comment on above: Performed By: #### Janki RUR UMICRO, PREGU #### [facility] [address] [address] [address] Saulo Lynch UR MICRO IND INDICATED Normal [facility] Comment on above: Performed By: #### Janki MEDRANORVALENTINEICRO, PREGU #### [facility] [address] [address] [address] Saulo Lynch Urobilinogen Qn (U) 0.2 {Claude'U}/dL Normal 0.2 - 1. 0 [facility] Comment on above: Performed By: #### VALENTINE BARRERAICRO, PREGU #### [facility] [address] [address] [address] Saulo Lynch URon 03-20-2022 , QUAL Negative Normal NEGATIVE [facility] Comment on above: Performed By: #### Janki BACH UMICRO, PREGU ####[facility] [address] [address]Dr. Saulo Lynch URINE MICROSCOPIC ONLYon BACTERIA TRACE Abnormal NONE SEEN [facility] Comment on above: Performed By: #### Janki RUR, UMICRO, PREGU ####[facility] [address] [address]Dr. Saulo Lynch Bacteria identified Cx Nom (U) INDICATED Normal [facility] Comment on above: Performed By: #### E RURDIAN, PREGU ####[facility] [address] [address]Dr. Saulo Lynch CAST NONE SEEN Normal NONE SEEN [facility] Comment on above: Performed By: #### E RUR, UMICRO, PREGU ####[facility] [address] [place] [address] [address]Dr. Saulo Lynch Crystals LM Nom (Urine sed) NONE SEEN Normal NONE SEEN [facility] Comment on above: Performed By: #### Janki RURVALENTINEICAMISHA, PREGU ####[facility] [address] [place], [place] [address]Dr. Saulo Lynch Epithelial cells LM Ql (Urine sed) FEW Abnormal NONE SEEN /RARE [facility] Comment on above: Performed By: #### DIAN BARRERA, PREGU ####[facility] [address] [place], [place] [address]Dr. Saulo Lynch MUCOUS NONE SEEN Normal NONE SEEN [facility] Comment on above: Performed By: #### DIAN BARRERA, PREGU ####[facility] [address] [place], [place] [address]Dr. Saulo Lynch RBC NONE SEEN Abnormal 0-2 [facility] Comment on above: Performed By: #### DIAN BARRERA, PREGU ####[facility] [address] [place], [place] [address]Dr. Saulo Lynch WBC 2-5 Abnormal NONE SEEN [facility] Comment on above: Performed By: #### VALENTINE BARRERAICRO, PREGU ####[facility] [address] [place], [place] [address]Dr. Saulo Lynch COVID Quick Testingon 2021 Result Negative [facility] Other Quick Strepon 11-06-2021 S. pyogenes Org specific cx Ql (Throat) Negative [facility] Other Quick Strep [facility] Other Vital Signs Date Time Vital Sign Value Performing Clinician Facility 11-19-2022 09:25-0400 Body height 167.64 cm Maria Luz Liliana Other [facility] Other 11-19-2022 09:25-0400 Body mass index (BMI) [Ratio] 24.37 kg/m2 Maria Luz Liliana Other [facility] Other 11-19-2022 09:25-0400 Body temperature 98.3 [degF] Maria Luz Liliana Other [facility] Other 11-19-2022 09:25-0400 Body weight 68.49 kg Maria Luz Liliana Other [facility] Other 11-19-2022 09:25-0400 Respiratory rate 18 /min Maria Luz Ford Other [facility] Other 11-19-2022 09:25-0400 SaO2% (BldA) [Mass fraction] 99 % Maria Luz Liliana Other [facility] Other 11-06-2021 13:15-0400 Body height 167.64 cm Eli Collazo Other [facility] Other 11-06-2021 13:15-0400 Body mass index (BMI) [Ratio] 25.01 kg/m2 Eli Vale Other [facility] Other 11-06-2021 13:15-0400 Body temperature 99.1 [degF] Eli Collazo Other [facility] Other 11-06-2021 13:15-0400 Body weight 70.31 kg Eli Collazo Other [facility] Other 11-06-2021 13:15-0400 Respiratory rate 18 /min Eli Vale Other [facility] Other 11-06-2021 13:15-0400 SaO2% (BldA) [Mass fraction] 99 % Eli Vale Other [facility] Other Encounters Encounter Date Encounter Type Care Provider Facility Start: 10-14-2023 End: 10-14-2023 ambulatory OLEG GUERRA Not Available Start: 11-19-2022 End: 11-19-2022 ambulatory Maria Luz Ford Other [facility] Other Start: 11-19-2022 Office outpatient vi sit 15 minutes Maria Luz Ford [facility] Start: 11-06-[address] JUAN ANTONIO ROLLINS Facili ty:H1 Start: 10-23-2022 End: 10-24-[address] JUAN ANTONIO ROLLINS Facility:[facility]1 Start: 10-14-2022 End: 10-15-[address] JUAN ANTONIO ROLLINS Facility:[facility]1 Start: 10-07-2022 End: 10-08-[address] JUAN ANTONIO ROLLINS Facility:[facility]1 Start: 10-01-2022 End: 10-02-[address] JUAN ANTONIO ROLLINS Facility:[facility]1 Start: 09-30-2022 End: 10-01-[address] JUAN ANTONIO ROLLINS Facility:[facility]1 Start: 09-27-2022 End: 09-28-[address] JUAN ANTONIO ROLLINS Facility:[facility]1 Start: 09-23-2022 End: 09-24-[address] JUAN ANTONIO ROLLINS Facility:[facility]1 Start: 09-18-2022 End: 09-19-[address] JUAN ANTONIO ROLLINS Facility:[facility]1 Start: 09-16-2022 End: 09-17-[address] JUAN ANTONIO ROLLINS Facility:[facility]1 Start: 09-10-2022 End: 09-11-[address] JUAN ANTONIO ROLLINS Facility:[facility]1 Start: 07-01-2022 End: 07-02-[address] JUAN ANTONIO ROLLINS Facility:[facility]1 Start: 06-28-2022 End: 06-29-[address] JUAN ANTONIO ROLLINS Facility:[facility] Start: 06-13-2022 End: 06-14-[address] JUAN ANTONIO ROLLINS Facility:[facility]1 Start: 06-10-2022 End: 06-11-[address] JUAN ANTONIO ROLLINS Facility:[facility] Start: 05-15-2022 End: 05-16-[address] JUAN ANTONIO ROLLINS Facility:[facility]1 Start: 04-02-2022 End: 04-02-[address] JUAN ANTONIO ROLLINS Facility:[facility]1 Start: 03-20-2022 End: 03-20-[address] JUAN ANTONIO ROLLINS Facility:[facility] Start: 01-01-2022 End: 01-02-[address] JUAN ANTONIO ROLLINS Facility:[facility] Start: 11-06-2021 End: 11-06-2021 ambulatory Eli Collazo Other [facility] Other Start: 11-06-2021 Office outpatient vi sit 15 minutes Eli Collazo [facility] Payers Date Payer Category Payer Medicaid [id number] 1985 Unknown [id number] 2.16.84 0.1.853763.3.579.2.593 1985 Unknown [id number] 2.16.84 0.1.906208.3.579.2.593 1987 Unknown [id number] 2.16.84 0.1.949256.3.579.2.593 1987 Unknown [id number] 2.16.84 0.1.390916.3.579.2.593 1987 Unknown [id number] 2.16.84 0.1.481214.3.579.2.593 1987 Unknown [id number] 2.16.84 0.1.577599.3.579.2.593 1987 Unknown [id number] 2.16.84 0.1.928012.3.579.2.593 1987 Unknown [id number] 2.16.84 0.1.052182.3.579.2.593 1987 Unknown [id number] 2.16.84 0.1.840115.3.579.2.593 1987 Unknown [id number] 2.16.84 0.1.237249.3.579.2.593 1987 Unknown [id number] 2.16.84 0.1.074457.3.579.2.593 1987 Unknown [id number] 2.16.84 0.1.620641.3.579.2.593 1987 Unknown [id number] 2.16.84 0.1.596846.3.579.2.593 1987 Unknown [id number] 2.16.84 0.1.652463.3.579.2.593 1987 Unknown [id number] 2.16.84 0.1.956292.3.579.2.593 1987 Unknown [id number] 2.16.84 0.1.277646.3.579.2.593 1987 Unknown [id number] 2.16.84 0.1.458075.3.579.2.593 1987 Unknown [id number] 2.16.84 0.1.064027.3.579.2.593 1987 Unknown [id number] 2.16.84 0.1.983760.3.579.2.593 1987 Unknown [id number] 2.16.84 0.1.085395.3.579.2.1259 1959 Unknown [id number] 2.1 6.840.1.459667.19 1959 Unknown [id number] Social History Date Type Detail Facility Unknown if ever smoked [facility] Other Sex Assigned At Sex Assigned At Bir th [facility] Other Evaluation note 11-19-2022 Note Date & Type Note Facility 11-19-2022 Evaluation note Encounter Date Diagnosis Assessment Notes October, Sore throat (ICD-10 - J02.9) Rapid strep negative. October, PND (post-nasa l drip) (ICD-10 - R09.82) Discussed with patient reported symptoms and exam is consistent with likely postnasal drip related to mild allergies. Recommend starting on Claritin or Zyrtec regularly for the next week to 2 weeks. May also use warm salt water gargles, topical throat sprays or throat lozenges when needed. Tylenol or ibuprofen may be used for any discomfort. Follow-up with PCP if not gradually improving over the next week, sooner if significantly worsening, fever. Patient verbalized understanding of treatment plan. [facility] Other Evaluation note 11-06-2021 Note Date & Type Note Facility 11-06-2021 Evaluation note Encounter Date Diagnosis Assessment Notes October, Viral upper respiratory infection (ICD-10 - J06.9) October, Allergic rhinitis, unspecified seasonality, unspecified trigger (ICD-10 - J30.9) Drink plenty fluids, get plenty of rest. Consider taking an antihistamine daily such as Zyrtec or Claritin for your symptoms. Take Tylenol Motrin for aches pains or fevers. Follow-up with your family physician if no improvement in 2 to 3 days. October, Contact with and (suspected) exposure to other viral communicable diseases (ICD-10 - Z20.828) October, Other Additional time spent conducting pre-visit phone call, screening for symptoms, instructions on social distancing, application and removal of PPE, and cleaning of examination room, equipment and supplies was preformed. Patient education given for testing methodology and results. Patient care instructions given in writting by [facility] document. [facility] Other History general Narrative - Reported Note Date & Type Note Facility History general Narrative - Reported Type Surgical History tubal ligation Surgical History right leg and ankle [facility] Other History general Narrative - Reported Note Date & Type Note Facility History general Narrative - Reported Type Medical History Adult acne Surgical History tubal ligation Surgical History right leg and ankle Surgical History wisdom teeth [facility] Other Summary Purpose Family History No Family History Records FoundNo Family History Records Found Advance Directives No Advanced Directives Records FoundNo Advanced Directives Records Found Additional Source Comments REASON FOR VISIT (unrecogniz ed section and content) RED MINI VAN, SORE THROAT, B /A X2 DAYSsore throat,coughing INFORMATION SOURCE (unrecogn ized section and content) DATE CREATED AUTHOR 10/31/2022 [facility] DATE CREATED AUTHOR AUTHOR'S ORGANIZ ATION 10/15/2023 [facility] FOR RECORDS PERTAINING TO PATIENTS WHO ARE OR HAVE BEEN ENROLLED IN A CHEMICAL DEPENDENCY/SUBSTANCEABUSE PROGRAM, SOME INFORMATION MAY BE OMITTED. This clinical summary was aggregated from multiple sources. Caution should be exercised in using it in the provision of clinical care. This summary normalizes information from multiple sources, and as a consequence, information in this document may materially change the coding, format and clinical context of patient data. In addition, data may be omitted in some cases. CLINICAL DECISIONS SHOULD BE BASED ON THE PRIMARY CLINICAL RECORDS. [facility] [employer] [facility]. provides no warranty or guarantee of the accuracy or completeness of information in this document.
== END 2024-01-24 11:01 | disposition home or self-care (01) ==
LOC: US 11:00
PROVIDERS: PCP Nurse Practitioner Family; Visit Provider Physician Assistant
DX: N92.0 Excessive and frequent menstruation with regular cycle (principal)
CPT/HCPCS: 76830; 76856

== ENCOUNTER 2024-02-10 11:01 | Outpatient (REF) | payer MEDICAID, SELFPAY ==
--- OUTSIDE RECORDS SUMMARY | 2024-02-26 11:12 | XMS_ITS | CCD ---
Author Organization [facility] Care Team Providers Care Patient Office Rep Name Role Phone Eli Collazo Unavailable RIA, DR ROMANO Primary Care Unavailable BENSON, DR GORDY Garcia Attending Unavailable BENSON, DR GORDY Garcia Consulting Unavailable BENSON, DR GORDY Gracia Admitting Unavailable LUIS, ANDRZEJ Schulz Consulting Unavailable RIA, DR ROMANO Primary Care Unavailable KALLIE ., DR COLINDRES Consulting Unavailabl e KALLIE ., DR COLINDRES Admitting Unavailabl e KALLIE ., DR COLINDRES Attending Unavailabl e RIA, DR ROMANO Primary Care Unavailable WEST, DR GORDY Garcia Admitting Unavailable WEST, DR GORDY Garcia Attending Unavailable WEST, DR GORDY Garcia Consulting Unavailable RIA, DR ROMANO Primary Care Unavailable WEST, DR GORDY Garcia Admbelinda Unavailable WEST, DR GORDY Garcia Attending Unavailable WEST, DR GORDY Garcia Consulting Unavailable LUIS, ANDRZEJ Schulz Consulting Unavailable RIA, DR ROMANO Primary Care Unavailable ANGE ., TORRES Attending Unavailable ANGE ., TORRES Admitting Unavailable ANGE ., TORRES Consulting Unavailable RIA, DR ROMANO Primary Care Unavailable HOUSE, DR ROMANO Attending Unavailable HOUSE, DR ROMANO Admitting Unavailable HOUSE, DR ROMANO Primary Care Unavailable BENSON, DR GORDY Garcia Admbelinda Unavailable WEST, DR GORDY Garcia Attending Unavailable WEST, DR GORDY Garcia Consulting Unavailable HOUSE, DR ROMANO Primary Care Unavailable WEST, DR GORDY Garcia Admitting Unavailable WEST, DR GORDY Garcia Attending Unavailable WEST, DR GORDY Garcia Consulting Unavailable ANDRZEJ العلي Consulting Unavailable RIA, DR ROMANO Primary Care Unavailable WEST, DR GORDY Garcia Admitting Unavailable WEST, DR GORDY Garcia Attending Unavailable WEST, DR GORDY Garcia Consulting Unavailable ANDRZEJ العلي Consulting Unavailable RIA, DR ROMANO Primary Care Unavailable WEST, DR GORDY Garcia Admitting Unavailable WEST, DR GORDY Garcia Attending Unavailable WEST, DR GORDY Garcia Consulting Unavailable ANDRZEJ العلي Consulting Unavailable RIA, DR ROMANO Primary Care Unavailable [...] Consulting Unavailable LUIS, ANDRZEJ Schulz Consulting Unavailable BELLE PLAINE, DR ROMANO Primary Care Unavailable WEST, DR GORDY Garcia Admitting Unavailable WEST, DR GRODY Garcia Attending Unavailable WEST, DR GORDY Garcia Consulting Unavailable ZIEBMINH, ANDRZEJ R Consulting Unavailable BELLE PLAINE, DR ROMANO Primary Care Unavailable WEST, DR GORDY Garcia Attending Unavailable WEST, DR GORDY Garcia Admitting Unavailable WEST, DR GORDY Garcia Consulting Unavailable BELLE PLAINE, DR ROMANO Primary Care Unavailable WEST, DR GORDY Garcia Attending Unavailable WEST, DR GORDY Garcia Admitting Unavailable HOUSE, DR ROMANO Primary Care Unavailable WEST, DR GORDY Garcia Attending Unavailable WEST, DR GORDY Garcia Admitting Unavailable WEST, DR GORDY Garcia Consulting Unavailable JAVIEREBMINH, ANDRZEJ Schulz Consulting Unavailable BELLE PLAINE, DR ROMANO Primary Care Unavailable WEST, DR GORDY Garcia Attending Unavailable WEST, DR GORDY Garcia Admitting Unavailable WEST, DR GORDY Garcia Consulting Unavailable ZIEBMINH, ANDRZEJ R Consulting Unavailable BELLE PLAINE, DR ROMANO Primary Care Unavailable WEST, DR GORDY Garcia Admitting Unavailable WEST, DR GORDY Garcia Attending Unavailable WEST, DR GORDY Garcia Consulting Unavailable LUIS, ANDRZEJ R Consulting Unavailable Maria Luz Ford Unavailable OLEG HARRISON Attending Unavailable PERLA MONTEIRO Attending Unavailable OLEG HARRISON Attending Unavailable DO Oleg Harrison Attending Provider [phone] Oleg Harrison Attending Unavailable Oleg Harrison Admitting Unavailable Allergies Allergy Classification Reported Allergen(s) Allergy Type Date of Onset Reaction(s) Facility (2 sources) Ciprofloxacin Drug Allergy rash [facility] Other (2 sources) Ciprofloxacin Drug Allergy 5 [facility] Repository (1 source) Ciprofloxacin Drug Allergy 3 [facility] Repository Medications Current Medications Medication Drug [...] Test Name Value Interpretation Reference Range Facility Pathology Request for Lab Co rpon 02-10-2024 Pathology Request for Lab Quinn Normal [facility] Comment on above: Order Comment: PATHO LOGY EMB SPECIMEN Result Comment: See report. Scanned copy available in EMR. PERFORMED BY: [place] [address] PATHOLOGIST HELIUM ARC WELDER DARYL AGUILAR M.D. Performed By: #### P ATH TO [facility] #### [address] Quick Strepon 11-19-2022 S. pyogenes Org specific cx Ql (Throat) Negative [employer] Other Quick Strep [employer] [facility] [employer] Other VC CONSULT FOLLOWUPon 2022 VC CONSULT FOLLOWUP Patient: ESDRAS DAVILA Exam Date: 10/23/2022 : 1985 Gender:F Ordering : DR GORDY KNOWLES M.D. Admission #: [id number] Family : Order #: [id number] CLICK HERE TO VIEW EXAM RADIOLOGY REPORT [...] Knowles MD on 10/23/2022 at 15:16 Normal [facility] VC EXT VENOUS RT LIMITEDon 0 10-23-2022 VC EXT VENOUS RT LIMITED Patient: ALBINO DAVILA Exam Date: 10/23/2022 : 1985 Gender:F Ordering : DR GORDY KNOWLES M.D. Admission #: [id number] Family : Order #: [id number] CLICK HERE TO VIEW EXAM RADIOLOGY REPORT [...] veins remain. *Exam performed in accordance with [facility] practice [facility]- Peripheral venous ultrasound, September 16, 2009. CONCLUSION: 15 cm length deep vein thrombus anterior of 2 posterior tibial veins, 8 cm from the popliteal junction Dictated by: Gordy Knowles MD on 10/23/2022 at 14:43 Approved by: Gordy Knowles MD on 10/23/2022 at 14:45 Normal [facility] VC INJ FOAM SCLERO W US MLTI on 10-14-2022 VC INJ FOAM SCLERO W US MLTI Patient: ALBINO DAVILA Exam Date: 10/14/2022 : 1985 Gender:F Ordering : DR GORDY KNOWLES M.D. Admission #: [id number] Family : Order #: [id number] CLICK HERE TO VIEW EXAM RADIOLOGY REPORT [...] tom (more content not included)... Normal [facility] VC CONSULT FOLLOWUPon 2022 VC CONSULT FOLLOWUP Patient: ESDRAS DAVILA Exam Date: 10/07/2022 : 1985 Gender:F Ordering : DR GORDY KNOWLES M.D. Admission #: [id number] Family : Order #: [id number] CLICK HERE TO VIEW EXAM RADIOLOGY REPORT [...] Knowles MD on 10/07/2022 at 08:52 Normal [facility] VC EXT VENOUS LT LIMITEDon 0 10-07-2022 VC EXT VENOUS LT LIMITED Patient: ALBINO DAVILA. Exam Date: 10/07/2022 : 1985 Gender:F Ordering : DR GORDY KNOWLES M.D. Admission #: [id number] Family : Order #: [id number] CLICK HERE TO VIEW EXAM RADIOLOGY REPORT [...] Knowles MD on 10/07/2022 at 08:14 Normal [facility] VC INJ FOAM SCLERO W US MLTI on 10-01-2022 VC INJ FOAM SCLERO W US MLTI Patient: ALBINO DAVILA. Exam Date: 10/01/2022 : 1985 Gender:F Ordering : DR GORDY KNOWLES M.D. Admission #: [id number] Family : Order #: [id number] CLICK HERE TO VIEW EXAM RADIOLOGY REPORT [...] Andrzej العلي M.D. on 10/01/2022 at 12:03 [facility] VC CONSULT FOLLOWUPon 2022 VC CONSULT FOLLOWUP Patient: ESDRAS DAVILA Exam Date: 09/30/2022 : 1985 Gender:F Ordering : DR GORDY KNOWLES M.D. Admission #: [id number] Family : Order #: [id number] CLICK HERE TO VIEW EXAM RADIOLOGY REPORT [...] العلي M.D. on 09/30/2022 at 14:24 Normal [facility] VC EXT VENOUS LT LIMITEDon 0 09-30-2022 VC EXT VENOUS LT LIMITED Patient: ALBINO DAVILA Exam Date: 09/30/2022 : 1985 Gender:F Ordering : DR GORDY KNOWLES M.D. Admission #: [id number] Family : Order #: [id number] CLICK HERE TO VIEW EXAM RADIOLOGY REPORT [...] العلي M.D. on 09/30/2022 at 14:22 Normal [facility] VC ENDOVENOUS ABL 1ST V LTon 09-27-2022 VC ENDOVENOUS ABL 1ST V LT Patient: ALBINO DAVILA Exam Date: 09/27/2022 : 1985 Gender:F Ordering : DR GORDY KNOWLES M.D. Admission #: [id number] Family : Order #: [id number] CLICK HERE TO VIEW EXAM RADIOLOGY REPORT [...] Knowles MD on 09/27/2022 at 14:34 Normal [facility] VC CONSULT FOLLOWUPon 2022 VC CONSULT FOLLOWUP Patient: ESDRAS DAVILA Exam Date: 09/23/2022 : 1985 Gender:F Ordering : DR GORDY KNOWLES M.D. Admission #: [id number] Family : Order #: [id number] CLICK HERE [...] العلي M.D. on 09/23/2022 at 16:02 Normal [facility] VC EXT VENOUS RT LIMITEDon 0 09-23-2022 VC EXT VENOUS RT LIMITED Patient: ALBINO DAVILA Exam Date: 09/23/2022 : 1985 Gender:F Ordering : DR GORDY KNOWLES M.D. Admission #: [id number] Family : Order #: [id number] CLICK HERE TO VIEW EXAM RADIOLOGY REPORT [...] العلي M.D. on 09/23/2022 at 16:00 Normal [facility] VC ENDOVENOUS ABL 1ST V RTon 09-18-2022 VC ENDOVENOUS ABL 1ST V RT Patient: ALBINO DAVILA Exam Date: 09/18/2022 : 1985 Gender:F Ordering : DR GORDY KNOWLES M.D. Admission #: [id number] Family : Order #: [id number] CLICK HERE TO VIEW EXAM RADIOLOGY REPORT [...] Knowles MD on 09/18/2022 at 10:04 Normal [facility] VC CONSULT FOLLOWUPon 2022 VC CONSULT FOLLOWUP Patient: ESDRAS DAVILA Exam Date: 09/16/2022 : 1985 Gender:F Ordering : DR GORDY KNOWLES M.D. Admission #: [id number] Family : Order #: [id number] CLICK HERE TO VIEW EXAM RADIOLOGY REPORT [...] العلي M.D. on 09/16/2022 at 15:09 Normal [facility] VC EXT VENOUS LT LIMITEDon 0 09-16-2022 VC EXT VENOUS LT LIMITED Patient: ALBINO ADVILA Exam Date: 09/16/2022 : 1985 Gender:F Ordering : DR GORDY KNOWLES M.D. Admission #: [id number] Family : Order #: [id number] CLICK HERE TO VIEW EXAM RADIOLOGY REPORT [...] العلي M.D. on 09/16/2022 at 15:00 Normal [facility] VC ENDOVENOUS ABL 1ST V LTon 09-10-2022 VC ENDOVENOUS ABL 1ST V LT Patient: ALBINO DAVILA Exam Date: 09/10/2022 : 1985 Gender:F Ordering : DR GORDY KNOWLES M.D. Admission #: [id number] Family : Order #: [id number] CLICK HERE TO VIEW EXAM RADIOLOGY REPORT [...] Andrzej العلي M.D. on 09/10/2022 at 09:34 Normal [facility] VC CONSULT FOLLOWUPon 2022 VC CONSULT FOLLOWUP Patient: ESDRAS DAVILA Exam Date: 07/01/2022 : 1985 Gender:F Ordering : DR GORDY KNOWLES M.D. Admission #: [id number] Family : Order #: [id number] CLICK HERE TO VIEW EXAM RADIOLOGY REPORT [...] Gordy Knowles MD on 07/01/2022 at 14:59 [facility] VC EXT VENOUS LT LIMITEDon 0 07-01-2022 VC EXT VENOUS LT LIMITED Patient: OBDULIA DAVILABY [place] Exam Date: 07/01/2022 : 1985 Gender:F Ordering : DR GORDY KNOWLES M.D. Admission #: [id number] Family : Order #: [id number] CLICK HERE TO VIEW EXAM RADIOLOGY REPORT [...] thrombus OTHER: *Exam performed in accordance with [facility] practice [facility]- Peripheral venous ultrasound, September 16, 2009. 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 Admission #: [id number] Family : Order #: [id number] CLICK HERE TO VIEW EXAM RADIOLOGY REPORT [...] Knowles MD on 06/28/2022 at 13:10 Normal [facility] VC CONSULT FOLLOWUPon 2021 VC CONSULT FOLLOWUP Patient: ESDRAS DAVILA Exam Date: 06/13/2022 : 1985 Gender:F Ordering : DR GORDY KNOWLES M.D. Admission #: [id number] Family : Order #: [id number] CLICK HERE TO VIEW EXAM RADIOLOGY REPORT [...] العلي M.D. on 06/13/2022 at 09:56 Normal [facility] VC EXT VENOUS RT LIMITEDon 1 08-14-2021 VC EXT VENOUS RT LIMITED Patient: ALBINO DAVILA Exam Date: 06/13/2022 : 1985 Gender:F Ordering : DR GORDY KNOWLES M.D. Admission #: [id number] Family : Order #: [id number] CLICK HERE TO VIEW EXAM RADIOLOGY REPORT [...] العلي M.D. on 06/13/2022 at 09:52 Normal [facility] VC ENDOVENOUS ABL 1ST V RTon 06-10-2022 VC ENDOVENOUS ABL 1ST V RT Patient: ALBINO DAVILA Exam Date: 06/10/2022 : 1985 Gender:F Ordering : DR GORDY KNOWLES M.D. Admission #: [id number] Family : Order #: [id number] CLICK HERE TO VIEW EXAM RADIOLOGY REPORT PROCEDURE: VEIN CENTER ENDOVENOUS ABLATION FIRST VEIN RIGHT COMPARISON: None. INDICATIONS: Pain co-occurrent and due to varicose veins of bilateral legs I83.813 OPERATIVE REPORT: The risks and benefits of the procedure had been previously discussed, and were rediscussed at length. Informed written consent was obtained by ar and Estrada Campos assisted. Time out procedure [...] Andrzej العلي M.D. on 06/10/2022 at 11:50 [facility] COMP CONSULTATIONon 05-15 VC COMP CONSULTATION Patient: ALBINO DAVILA Exam Date: 05/15/2022 : 1985 Gender:F Ordering : DR GORDY KNOWLES M.D. Admission #: [id number] Family : Order #: [id number] CLICK HERE TO VIEW EXAM RADIOLOGY REPORT [...] vein, a dilated an incompetent left calf forest manager vein, and numerous superficial branch saphenous varicosities.. [...] arterial disease 5. CEAP: C2, EP, AP, HI PLAN: 1. Continued use of compression stockings [...] العلي M.D. on 05/15/2022 at 10:33 Normal [facility] VC VENOUS REFLUX MIKE LMTon 1 07-15-2021 VC VENOUS REFLUX MIKE LMT Patient: ALBINO DAVILA Exam Date: 05/15/2022 : 1985 Gender:F Ordering : DR GORDY KNOWLES M.D. Admission #: [id number] Family : Order #: [id number] CLICK HERE TO VIEW EXAM RADIOLOGY REPORT [...] thrombus. Compressibility: Normal. Flow: Deep venous reflux. Lens Coating Technician: Dist medial calf 4.9 mm with 1.9s [...] varicosities bilaterally. 3. Prominent left distal calf forest manager with prominent reflux. 4. Consultation for endovascular venous ablation is recommended. Dictated by: Andrzej العلي M.D. on 05/15/2022 at 09:59 Approved by: Andrzej العلي M.D. on 05/15/2022 at 10:23 Normal [facility] PAP ACOG PANEL 2: 30 to 65on 04-07-2022 . . Normal [facility] Comment on above: Result Comment: Perf ormed at: BA Performed By: #### 4 [id number] ####[facility] [address] [place] [id number] Lynch Age Gdln ACOG Testing 30-65 Normal [facility] Comment on above: Performed By: #### 4 [id number] ####[facility] [address] [place] [address]Dr. Saulo Lynch DIAGNOSIS: Comment Normal [facility] Comment on above: Result Comment: NEGA TIVE FOR INTRAEPITHELIAL LESION OR MALIGNANCY. Performed at: BA Performed By: #### 4 [id number] ####[facility] [address] [place] [address]DrRyanne Lynch HPV Aptima Negative Normal Negative [facility] Comment on above: Result Comment: This nucleic acid amplification test detects fourteen high-risk HPV types (16,18,31,33,35,39,45,51,52,56,58,59,66,68) without differentiation. Performed at: =G Performed By: #### 4 [id number] ####[facility] [address] [place] [address]DrRyanne Lynch Methodology: Comment Normal [facility] Comment on above: Result Comment: This liquid based ThinPrep(R) pap test was screened with the use of an image guided system. Performed at: WB Performed By: #### 4 [id number] ####[facility] [address] [place] [id number]. Saulo Lynch Note: Comment Normal [facility] Comment on above: Result Comment: The Pap smear is a screening test designed to aid in the detection of premalignant and malignant conditions of the uterine cervix. It is not a diagnostic procedure and should not be used as the sole means of detecting cervical cancer. Both false-positive and false-negative reports do occur. . Performed at: WB Performed By: #### 4 [id number] ####[facility] [address] [place] [address]DrRyanne Lynch Performed by: Comment Normal [facility] Comment on above: Result Comment: Lee Ann Clifton, Clinical Program Director (ASCP) Performed at: Performed By: #### 4 [id number] ####[facility] [address] [place] [address]Dr. Saulo Lynch Specimen adequacy: Comment Normal [facility] Comment on above: Result Comment: Sati sfactory for evaluation. Endocervical and/or squamous metaplastic cells (endocervical component) are present. Performed at: Performed By: #### 4 [id number] ####[facility] [address] [place] [address]Dr. Saulo Lynch CHLAMYDIA/GONOCOCCUS SRINIVASA (SW AB/URINE/PAPon 04-05-2022 Chlamydia trachomatis, SRINIVASA Negative Normal Negative [facility] Comment on above: Performed By: #### C T/NGNA #### [facility] [address] [place] [address] Dr. Saulo Lynch Neisseria gonorrhoeae, SRINIVASA Negative Normal Negative [facility] Comment on above: Performed By: #### C T/NGNA #### [facility] [address] [place] [address] Dr. Saulo Lynch VAGINITIS/VAGINOSIS DNA PROB Piotr 04-05-2022 Vale species Negative Normal Negative [facility] Comment on above: Performed By: #### V AGINT #### [facility] [address] [place] [address] Dr. Saulo Lynch Gardnerella vaginalis Negative Normal Negative [facility] Comment on above: Performed By: #### V AGINT #### [facility] [address] [place] [address] Dr. Saulo Lynch Trichomonas vaginalis Negative Normal Negative [facility] Comment on above: Performed By: #### V AGINT #### [facility] [address] [place] [address] Dr. Saulo Lynch CHLAMYDIA/GONOCOCCUS SRINIVASA (SW AB/URINE/PAPon 03-22-2022 Chlamydia trachomatis, SRINIVASA Negative Normal Negative [facility] Comment on above: Performed By: #### C T/NGNA ####[facility] [address] [place] [address]Dr. Saulo Lynch Neisseria gonorrhoeae, SRINIVASA Negative Normal Negative [facility] Comment on above: Performed By: #### C T/NGNA ####[facility] [address] [place] [address]DrRyanne Lynch CULTURE URINEon 03-20-2022 CULTURE URINE Culture Observations : LIGHT GROWTH OF MIXED GENITAL NESTOR. NO POTENTIAL PATHOGENS SEEN. Normal [facility] Comment on above: Performed By: #### U RCX ####[facility] [address] [place] [address]Dr. Saulo Lynch ER URINE PROFILEon Bilirubin Ql (U) Negative Normal NEGATIVE [facility] Comment on above: Performed By: #### DIAN BARRERA, PREGU #### [facility] [address] [address] [address] Saulo Lynch Clarity (U) CLEAR Normal CLEAR [facility] Comment on above: Performed By: #### DIAN BARRERA PREGU #### [facility] [address] [address] [address] Saulo Lynch Color (U) LT. YELLOW Normal YELLOW [facility] Comment on above: Performed By: #### DIAN BARRERA PREGU #### [facility] [address] [address] [address] Saulo Lynch ERUAHLouie A micrscopic examination will be performed if indicated. Normal [facility] Comment on above: Performed By: #### DIAN BARRERA PREGU #### [facility] [address] [address] [address] Saulo Lynch Glucose Ql (U) Negative Normal NEGATIVE [facility] Comment on above: Performed By: #### Janki RURDIAN, PREGU #### [facility] [address] [address] [address] Saulo Lynch Hemoglobin Ql (U) Negative Normal NEGATIVE [facility] Comment on above: Performed By: #### E RUR, UMICRO, PREGU #### [facility] [address] [address] [address] Saulo Lynch Ketones Ql (U) Negative Normal NEGATIVE [facility] Comment on above: Performed By: #### E RUR, UMICRO, PREGU #### [facility] [address] [address] [address] Saulo Lynch LEUKOCYTES SMALL Abnormal NEGATIVE [facility] Comment on above: Performed By: #### E RUR, UMICRO, PREGU #### [facility] [address] [address] [address] Saulo Lynch Nitrite Ql (U) Negative Normal NEGATIVE [facility] Comment on above: Performed By: #### E RUR, UMICRO, PREGU #### [facility] [address] [address] [address] Saulo Lynch pH (U) 7.0 [pH] Normal 5-9 [facility] Comment on above: Performed By: #### E RUR, UMICRO, PREGU #### [facility] [address] [address] [address] Saulo Lynch SPEC GRAVITY 1.020 Normal 1.005-<=1.025 [facility] Comment on above: Performed By: #### E RUR, UMICRO, PREGU #### [facility] [address] [address] [address] Saulo Lynch UA PROTEIN Negative Normal NEGATIVE/ TRACE [facility] Comment on above: Performed By: #### E RUR, UMICRO, PREGU #### [facility] [address] [address] [address] Saulo Lynch UR MICRO IND INDICATED Normal [facility] Comment on above: Performed By: #### E RUR, UMICRO, PREGU #### [facility] [address] [place] [address] Dr. Saulo Lynch Urobilinogen Qn (U) 0.2 {Claude'U}/dL Normal 0.2 - 1. 0 [facility] Comment on above: Performed By: #### DIAN BARRERA, PREGU #### [facility] [address] [address] [address] Saulo Lynch URon 03-20-2022 , QUAL Negative Normal NEGATIVE [facility] Comment on above: Performed By: #### DIAN BARRERA, PREGU ####[facility] [address] [place] [address]Dr. Saulo Lynhc URINE MICROSCOPIC ONLYon BACTERIA TRACE Abnormal NONE SEEN [facility] Comment on above: Performed By: #### DIAN BARRERA PREGU ####[facility] [address] [place] [address]Dr. Saulo Lynch Bacteria identified Cx Nom (U) INDICATED Normal [facility] Comment on above: Performed By: #### DIAN BARRERA, PREGU ####[facility] [address] [place] [address]Dr. Saulo Lynch CAST NONE SEEN Normal NONE SEEN [facility] Comment on above: Performed By: #### DIAN BARRERA, PREGU ####[facility] [address] [place] [address]Dr. Saulo Lynch Crystals LM Nom (Urine sed) NONE SEEN Normal NONE SEEN [facility] Comment on above: Performed By: #### DIAN BARRERA, PREGU ####[facility] [address] [place] [address]Dr. Saulo Lynch Epithelial cells LM Ql (Urine sed) FEW Abnormal NONE SEEN /RARE [facility] Comment on above: Performed By: #### DIAN BARRERA, PREGU ####[facility] [address] [place] [address]Dr. Saulo Lynch MUCOUS NONE SEEN Normal NONE SEEN [facility] Comment on above: Performed By: #### Janki RUDIAN Schulz, PREGU ####[facility] [address] [place] [address]Dr. Saulo Lynch RBC NONE SEEN Abnormal 0-2 [facility] Comment on above: Performed By: #### E DIAN BACH PREGU ####[facility] [address] [place], [place] [address]Zv. Saulo Lynch WBC 2-5 Abnormal NONE SEEN [facility] Comment on above: Performed By: #### E RURDIAN, PREGU ####[facility] [address] [place], [place] [address]Uz. Saulo Lynch COVID Quick Testingon 2021 Result Negative [employer] Other Quick Strepon 11-06-2021 S. pyogenes Org specific cx Ql (Throat) Negative [facility] Other Vital Signs Date Time Vital Sign Value Performing Clinician Facility 11-19-2022 09:25-0400 Body height 167.64 cm Maria Luz Ford Other [facility] Other 11-19-2022 09:25-0400 Body mass index (BMI) [Ratio] 24.37 kg/m2 Maria Luz Ford Other [facility] 11-19-2022 09:25-0400 Body temperature 98.3 [degF] Maria Luz Ford Other [facility] Other 11-19-2022 09:25-0400 Body weight 68.49 kg Maria Luz Ford Other [facility] 11-19-2022 09:25-0400 Respiratory rate 18 /min Maria Luz Ford Other [facility] 11-19-2022 09:25-0400 SaO2% (BldA) [Mass fraction] 99 % Maria Luz Ford Other [facility] 11-06-2021 13:15-0400 Body height 167.64 cm Eli Collazo Other [facility] 11-06-2021 13:15-0400 Body mass index (BMI) [Ratio] 25.01 kg/m2 Eli Collazo Other [facility] Other 11-06-2021 13:15-0400 Body temperature 99.1 [degF] Eli Collazo Other [facility] Other 11-06-2021 13:15-0400 Body weight 70.31 kg Eli Collazo Other [facility] Other 11-06-2021 13:15-0400 Respiratory rate 18 /min Eli Collazo Other [facility] Other 11-06-2021 13:15-0400 SaO2% (BldA) [Mass fraction] 99 % Eli Collazo Other [facility] Other Encounters Encounter Date Encounter Type Care Provider Facility Start: 02-10-2024 End: 02-10-2024 Departed Referred DO Oleg Harrison Work Phone: [facility] Start: 02-10-2024 End: 02-10-2024 ambulatory OLEG HARRISON Not Available Start: 01-22-2024 End: 01-22-2024 ambulatory PERLA MONTEIRO Not Available Start: 10-14-2023 End: 10-14-2023 ambulatory OLEG HARRISON Not Available Start: 11-19-2022 End: 11-19-2022 ambulatory Maria Luz Ford Other [facility] Start: 11-19-2022 Office outpatient vi sit [...] 11-06-2021 End: 11-06-2021 ambulatory Eli Collazo Other [facility] Start: 11-06-2021 Office outpatient vi sit 15 minutes Eli Collazo [facility] [place] Plan of Treatment Date Care Activity Detail Author Start: 02-10-2024 [facility] Payers Date Payer Category Payer Self-pay 2022 Medicaid [id number] 1985 Unknown [id number] 2.16.84 0.1.070098.3.579.2.593 1985 Unknown [id number] 2.16.84 0.1.675666.3.579.2.593 1987 Unknown [id number] 2.16.84 0.1.583014.3.579.2.593 1987 Unknown [id number] 2.16.84 0.1.105698.3.579.2.593 1987 Unknown [id number] 2.16.84 0.1.472368.3.579.2.593 1987 Unknown [id number] 2.16.84 0.1.089868.3.579.2.593 1987 Unknown [id number] 2.16.84 0.1.495518.3.579.2.593 1987 Unknown [id number] 2.16.84 0.1.595056.3.579.2.593 1987 Unknown [id number] 2.16.84 0.1.426744.3.579.2.593 1987 Unknown [id number] 2.16.84 0.1.008772.3.579.2.593 1987 Unknown [id number] 2.16.84 0.1.997570.3.579.2.593 1987 Unknown [id number] 2.16.84 0.1.684901.3.579.2.593 1987 Unknown [id number] 2.16.84 0.1.666760.3.579.2.593 1987 Unknown [id number] 2.16.84 0.1.445477.3.579.2.593 1987 Unknown [id number] 2.16.84 0.1.611640.3.579.2.593 1987 Unknown [id number] 2.16.84 0.1.199657.3.579.2.593 1987 Unknown [id number] 2.16.84 0.1.485516.3.579.2.593 1987 Unknown [id number] 2.16.84 0.1.088730.3.579.2.593 1987 Unknown [id number] 2.16.84 0.1.815445.3.579.2.593 1987 Unknown [id number] 2.16.84 0.1.406555.3.579.2.1259 1987 Unknown [id number] 2.16.84 0.1.185564.3.579.2.1259 1987 Unknown [id number] 2.16.84 0.1.464266.3.579.2.1259 1959 Unknown [id number] 2.1 6.840.1.892942.19 1959 Unknown [id number] Social History Date Type Detail Facility Unknown if ever smoked [facility] Other Sex Assigned At Sex Assigned At Bir th [facility] Other Start: 1985 Sex Assigned At Female F [facility] Evaluation note 11-19-2022 Note Date & Type [...] fever. Patient verbalized understanding of treatment plan. [facility] Other Evaluation note 11-06-2021 Note Date & [...] Patient care instructions given in writting by [facility] document. [facility] Other Evaluation note Note Date & Type Note Facility Evaluation note No assessment information availa [facility] Work Phone: History general Narrative - Reported Note Date & Type Note Facility History general Narrative - Reported Type Surgical History tubal ligation Surgical History right leg and ankle [facility] Other History general Narrative - Reported Note Date & Type Note Facility History general Narrative - Reported Type Medical History Adult acne Surgical History tubal ligation Surgical History right leg and ankle Surgical History wisdom teeth [facility] Other Summary Purpose Family History No Family History Records Found Relationship Condition Age at Onset Recorded Date/T brittney father Hypertension Unknown Advance Directives No Advanced Directives Records FoundNo Advanced Directives Records FoundNo Advanced Directives Records Found Additional Source Comments REASON FOR VISIT (unrecogniz ed section and content) RED MINI VAN, SORE THROAT, B /A X2 DAYSsore throat,coughing INFORMATION SOURCE (unrecogn ized section and content) DATE CREATED AUTHOR 10/31/2022 [facility] DATE CREATED AUTHOR AUTHOR'S ORGANIZ ATION 02/11/2024 [facility] EPIC DATE CREATED AUTHOR AUTHOR'S ORGANIZ ATION 02/19/2024 [facility] Care Teams (unrecognized sec tion and content) Team Status: Inactive Member Role Status Dates Oleg Harrison DO Attending Provider Active Start : February 10, 2024 End: February 10, 2024 Goals (unrecognized section and content) Goals may be documented in a n alternate section FOR RECORDS PERTAINING TO PATIENTS WHO ARE [...] BE BASED ON THE PRIMARY CLINICAL RECORDS. [employer] provides no warranty or guarantee of the accuracy or completeness of information in this document.
--- OUTSIDE RECORDS SUMMARY | 2024-02-26 11:13 | XMS_ITS | CCD ---
Author Organization [facility] Care Team Providers Care Sample Grinder Name Role Phone Eli Collazo Unavailable RIA, DR ROMANO Primary Care Unavailable BENSON, DR GORDY Garcia Attending Unavailable BENSON, DR GORDY Garcia Consulting Unavailable BENSON, DR GORDY Garcia Admitting Unavailable LUIS, ANDRZEJ [...] DR ROMANO Primary Care Unavailable WEST, DR GODRY Garcia Admitting Unavailable WEST, DR GORDY Garcia [...] Consulting Unavailable LUIS, ANDRZEJ Schulz Consulting Unavailable REARDAN, DR ROMANO Primary Care Unavailable WEST, DR GORDY Garcia Admitting Unavailable WEST, DR GORDY Garcia Attending Unavailable WEST, DR GORDY Garcia Consulting Unavailable ZIEBMINH, ANDRZEJ R Consulting Unavailable REARDAN, DR ROMANO Primary Care Unavailable WEST, DR GORDY Garcia Attending Unavailable WEST, DR GORDY Garcia Admitting Unavailable WEST, DR GORDY Garcia Consulting Unavailable REARDAN, DR ROMANO Primary Care Unavailable WEST, DR GORDY Garcia Attending Unavailable WEST, DR GORDY Garcia Admitting Unavailable HOUSE, DR ROMANO Primary Care Unavailable WEST, DR GORDY Garcia Attending Unavailable WEST, DR GORDY Garcia Admitting Unavailable WEST, DR GORDY Garcia Consulting Unavailable JAVIEREBMINH, ANDRZEJ Schulz Consulting Unavailable REARDAN, DR ROMANO Primary Care Unavailable WEST, DR GORDY Garcia Attending Unavailable WEST, DR GORDY Garcia Admitting Unavailable WEST, DR GORDY Garcia Consulting Unavailable ZIEBMINH, ANDRZEJ R Consulting Unavailable REARDAN, DR ROMANO Primary Care Unavailable WEST, DR GORDY Garcia Admitting Unavailable WEST, DR GORDY Garcia Attending Unavailable WEST, DR GORDY Garcia Consulting Unavailable LUIS, ANDRZEJ R Consulting Unavailable Maria Luz Ford Unavailable OLEG HARRISON Attending Unavailable PERLA MONTEIRO Attending Unavailable OLEG HARRISON Attending Unavailable DO Oleg Harrison Attending Provider [phone] Oleg Harrison Attending Unavailable Olge Harrison Admitting Unavailable Allergies Allergy Classification Reported Allergen(s) Allergy Type Date of Onset Reaction(s) Facility (2 sources) Ciprofloxacin Drug Allergy rash [facility] Other (2 sources) Ciprofloxacin Drug Allergy 5 [facility] Repository (1 source) Ciprofloxacin Drug Allergy 3 [facility] Repository Medications Current Medications Medication Drug Class(es) [...] Pathology Request for Lab Quinn Normal [facility] Comment on above: Order Comment: PATHO LOGY EMB SPECIMEN Result Comment: See report. Scanned copy available in EMR. PERFORMED BY: [place] [id number] PATHOLOGIST RADIO TIME BUYER DARYL AGUILAR M.D. Performed By: #### P ATH TO [facility] #### [address] Quick Strepon 11-19-2022 S. pyogenes Org specific cx Ql (Throat) Negative [facility] Other Quick Strep [facility] Other VC CONSULT FOLLOWUPon 2022 VC CONSULT FOLLOWUP Patient: ESDRAS DAVILA Exam Date: 10/23/2022 : 1985 Gender:F Ordering : DR GORDY KNOWLES M.D. Admission #: [id number] Family : Order #: [id number] CLICK HERE TO VIEW EXAM RADIOLOGY REPORT [...] Knowles MD on 10/23/2022 at 15:16 Normal [facility] VC EXT VENOUS RT LIMITEDon 0 10-23-2022 VC EXT VENOUS RT LIMITED Patient: ALBINO DAVILA Exam Date: 10/23/2022 : 1985 Gender:F Ordering : DR GORDY KNOWLES M.D. Admission #: [id number] Family : Order #: [id number] CLICK HERE TO VIEW EXAM RADIOLOGY REPORT [...] Knowles MD on 10/23/2022 at 14:45 Normal [facility] VC INJ FOAM SCLERO W US MLTI on 10-14-2022 VC INJ FOAM SCLERO W US MLTI Patient: ALBINO DAVILA Exam Date: 10/14/2022 : 1985 Gender:F Ordering : DR GORDY KNOWLES M.D. Admission #: [id number] Family : Order #: [id number] CLICK HERE TO VIEW EXAM RADIOLOGY REPORT [...] tom (more content not included)... Normal [facility] VC CONSULT FOLLOWUPon 2022 VC CONSULT FOLLOWUP Patient: ESDRAS DAVILA Exam Date: 10/07/2022 : 1985 Gender:F Ordering : DR GORDY KNOWLES M.D. Admission #: [id number] Family : Order #: [id number] CLICK HERE TO VIEW EXAM RADIOLOGY REPORT [...] Knowles MD on 10/07/2022 at 08:52 Normal [facility] VC EXT VENOUS LT LIMITEDon 0 10-07-2022 VC EXT VENOUS LT LIMITED Patient: ALBINO DAVILA. Exam Date: 10/07/2022 : 1985 Gender:F Ordering : DR GORDY KNOWLES M.D. Admission #: [id number] Family : Order #: [id number] CLICK HERE TO VIEW EXAM RADIOLOGY REPORT [...] Knowles MD on 10/07/2022 at 08:14 Normal [facility] VC INJ FOAM SCLERO W US MLTI on 10-01-2022 VC INJ FOAM SCLERO W US MLTI Patient: ALBINO DAVILA. Exam Date: 10/01/2022 : 1985 Gender:F Ordering : DR GORDY KNOWLES M.D. Admission #: [id number] Family : Order #: [id number] CLICK HERE TO VIEW EXAM RADIOLOGY REPORT [...] Andrzej العلي M.D. on 10/01/2022 at 12:03 [facility] VC CONSULT FOLLOWUPon 2022 VC CONSULT FOLLOWUP Patient: ESDRAS DAVILA Exam Date: 09/30/2022 : 1985 Gender:F Ordering : DR GORDY KNOWLES M.D. Admission #: [id number] Family : Order #: [id number] CLICK HERE TO VIEW EXAM RADIOLOGY REPORT [...] العلي M.D. on 09/30/2022 at 14:24 Normal [facility] VC EXT VENOUS LT LIMITEDon 0 09-30-2022 VC EXT VENOUS LT LIMITED Patient: ALBINO DAVILA Exam Date: 09/30/2022 : 1985 Gender:F Ordering : DR GORDY KNOWLES M.D. Admission #: [id number] Family : Order #: [id number] CLICK HERE TO VIEW EXAM RADIOLOGY REPORT [...] العلي M.D. on 09/30/2022 at 14:22 Normal [facility] VC ENDOVENOUS ABL 1ST V LTon 09-27-2022 VC ENDOVENOUS ABL 1ST V LT Patient: ALBINO DAVILA Exam Date: 09/27/2022 : 1985 Gender:F Ordering : DR GORDY KNOWLES M.D. Admission #: [id number] Family : Order #: [id number] CLICK HERE TO VIEW EXAM RADIOLOGY REPORT [...] Knowles MD on 09/27/2022 at 14:34 Normal [facility] VC CONSULT FOLLOWUPon 2022 VC CONSULT FOLLOWUP Patient: ESDRAS DAVILA Exam Date: 09/23/2022 : 1985 Gender:F Ordering : DR GORDY KNOWLES M.D. Admission #: [id number] Family : Order #: [id number] CLICK HERE [...] العلي M.D. on 09/23/2022 at 16:02 Normal [facility] VC EXT VENOUS RT LIMITEDon 0 09-23-2022 VC EXT VENOUS RT LIMITED Patient: ALBINO DAVILA Exam Date: 09/23/2022 : 1985 Gender:F Ordering : DR GORDY KNOWLES M.D. Admission #: [id number] Family : Order #: [id number] CLICK HERE TO VIEW EXAM RADIOLOGY REPORT [...] العلي M.D. on 09/23/2022 at 16:00 Normal [facility] VC ENDOVENOUS ABL 1ST V RTon 09-18-2022 VC ENDOVENOUS ABL 1ST V RT Patient: ALBINO DAVILA Exam Date: 09/18/2022 : 1985 Gender:F Ordering : DR GORDY KNOWLES M.D. Admission #: [id number] Family : Order #: [id number] CLICK HERE TO VIEW EXAM RADIOLOGY REPORT [...] Knowles MD on 09/18/2022 at 10:04 Normal [facility] VC CONSULT FOLLOWUPon 2022 VC CONSULT FOLLOWUP Patient: ESDRAS DAVILA Exam Date: 09/16/2022 : 1985 Gender:F Ordering : DR GORDY KNOWLES M.D. Admission #: [id number] Family : Order #: [id number] CLICK HERE TO VIEW EXAM RADIOLOGY REPORT [...] العلي M.D. on 09/16/2022 at 15:09 Normal [facility] VC EXT VENOUS LT LIMITEDon 0 09-16-2022 VC EXT VENOUS LT LIMITED Patient: ALBINO DAVILA Exam Date: 09/16/2022 : 1985 Gender:F Ordering : DR GORDY KNOWLES M.D. Admission #: [id number] Family : Order #: [id number] CLICK HERE TO VIEW EXAM RADIOLOGY REPORT [...] M.D. on 09/16/2022 at 15:00 Normal [facility] VC ENDOVENOUS ABL 1ST V LTon 09-10-2022 VC ENDOVENOUS ABL 1ST V LT Patient: ALBINO DAVILA Exam Date: 09/10/2022 : 1985 Gender:F Ordering : DR GORDY KNOWLES M.D. Admission #: [id number] Family : Order #: [id number] CLICK HERE TO VIEW EXAM RADIOLOGY REPORT [...] M.D. on 09/10/2022 at 09:32 Approved by: Andrezj العلي M.D. on 09/10/2022 at 09:34 Normal [facility] VC CONSULT FOLLOWUPon 2022 VC CONSULT FOLLOWUP Patient: ESDRAS DAVILA Exam Date: 07/01/2022 : 1985 Gender:F Ordering : DR GORDY KNOWLES M.D. Admission #: [id number] Family : Order #: [id number] CLICK HERE TO VIEW EXAM RADIOLOGY REPORT [...] MD on 07/01/2022 at 14:58 Approved by: oGrdy Knowles MD on 07/01/2022 at 14:59 [facility] VC EXT VENOUS LT LIMITEDon 0 07-01-2022 VC EXT VENOUS LT LIMITED Patient: OBDULIA DAVILABY [place] Exam Date: 07/01/2022 : 1985 Gender:F Ordering : DR GORDY KNOWLES M.D. Admission #: [id number] Family : Order #: [id number] CLICK HERE TO VIEW EXAM RADIOLOGY REPORT [...] Knowles MD on 07/01/2022 at 14:20 Normal [facility] VC ENDOVENOUS ABL 1ST V LTon 06-28-2022 VC ENDOVENOUS ABL 1ST V LT Patient: ALBINO DAVILA Exam Date: 06/28/2022 : 1985 Gender:F Ordering : DR GORDY KNOWLES M.D. Admission #: [id number] Family : Order #: [id number] CLICK HERE TO VIEW EXAM RADIOLOGY REPORT [...] Knowles MD on 06/28/2022 at 13:10 Normal [facility] VC CONSULT FOLLOWUPon 2021 VC CONSULT FOLLOWUP Patient: ESDRAS DAVILA Exam Date: 06/13/2022 : 1985 Gender:F Ordering : DR GORDY KNOWLES M.D. Admission #: [id number] Family : Order #: [id number] CLICK HERE TO VIEW EXAM RADIOLOGY REPORT [...] العلي M.D. on 06/13/2022 at 09:56 Normal [facility] VC EXT VENOUS RT LIMITEDon 1 08-14-2021 VC EXT VENOUS RT LIMITED Patient: ALBINO DAVILA Exam Date: 06/13/2022 : 1985 Gender:F Ordering : DR GORDY KNOWLES M.D. Admission #: [id number] Family : Order #: [id number] CLICK HERE TO VIEW EXAM RADIOLOGY REPORT [...] العلي M.D. on 06/13/2022 at 09:52 Normal [facility] VC ENDOVENOUS ABL 1ST V RTon 06-10-2022 VC ENDOVENOUS ABL 1ST V RT Patient: ALBINO DAVILA Exam Date: 06/10/2022 : 1985 Gender:F Ordering : DR GORDY KNOWLES M.D. Admission #: [id number] Family : Order #: [id number] CLICK HERE TO VIEW EXAM RADIOLOGY REPORT PROCEDURE: VEIN CENTER ENDOVENOUS ABLATION FIRST VEIN RIGHT COMPARISON: None. INDICATIONS: Pain co-occurrent and due to varicose veins of bilateral legs I83.813 OPERATIVE REPORT: The risks and benefits of the procedure had been previously discussed, and were rediscussed at length. Informed written consent was obtained by [place] and Estrada Campos assisted. Time out procedure [...] Andrzej العلي M.D. on 06/10/2022 at 11:50 [facility] COMP CONSULTATIONon 05-15 VC COMP CONSULTATION Patient: ALBINO DAVILA Exam Date: 05/15/2022 : 1985 Gender:F Ordering : DR GORDY KNOWLES M.D. 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 [...] arterial disease 5. CEAP: C2, EP, AP, CA PLAN: 1. Continued use of compression stockings [...] العلي M.D. on 05/15/2022 at 10:33 Normal [facility] VC VENOUS REFLUX MIKE LMTon 1 07-15-2021 VC VENOUS REFLUX MIKE LMT Patient: ALBINO DAVILA Exam Date: 05/15/2022 : 1985 Gender:F Ordering : DR GORDY KNOWLES M.D. Admission #: [id number] Family : Order #: [id number] CLICK HERE TO VIEW EXAM RADIOLOGY REPORT [...] thrombus. Compressibility: Normal. Flow: Deep venous reflux. Beef Specialist: Dist medial calf 4.9 mm with 1.9s [...] varicosities bilaterally. 3. Prominent left distal calf auto repair technician with prominent reflux. 4. Consultation for endovascular venous ablation is recommended. Dictated by: Andrzej العلي M.D. on 05/15/2022 at 09:59 Approved by: Andrzej العلي M.D. on 05/15/2022 at 10:23 Normal [facility] PAP ACOG PANEL 2: 30 to 65on 04-07-2022 . . Normal [facility] Comment on above: Result Comment: Perf ormed at: BA Performed By: #### [id number] ####[facility] [address] [place] [id number] Lynch Age Gdln ACOG Testing 30-65 Normal [facility] Comment on above: Performed By: #### 4 [id number] ####[facility] [address] [place] [address]Dr. Saulo Lynch DIAGNOSIS: Comment Normal [facility] Comment on above: Result Comment: NEGA TIVE FOR INTRAEPITHELIAL LESION OR MALIGNANCY. Performed at: BA Performed By: #### 4 [id number] ####[facility] [address] [place] [address]DrRyanne Lynch HPV Aptima Negative Normal Negative [facility] Comment on above: Result Comment: This nucleic acid amplification test detects fourteen high-risk HPV types (16,18,31,33,35,39,45,51,52,56,58,59,66,68) without differentiation. Performed at: =G Performed By: #### 4 [id number] ####[facility] [address] [place] [address]DrRyanne Lynch Methodology: Comment Normal [facility] Comment on above: Result Comment: This liquid based ThinPrep(R) pap test was screened with the use of an image guided system. Performed at: WB Performed By: #### 4 [id number] ####[facility] [address] [place] [id number]. Saulo Lynch Note: Comment Normal [facility] Comment on above: Result Comment: The Pap smear is a screening test designed to aid in the detection of premalignant and malignant conditions of the uterine cervix. It is not a diagnostic procedure and should not be used as the sole means of detecting cervical cancer. Both false-positive and false-negative reports do occur. . Performed at: WB Performed By: #### 4 [id number] ####[facility] [address] [place] [address]DrRyanne Lynch Performed by: Comment Normal [facility] Comment on above: Result Comment: Lee Ann Clifton, Pocketbook Maker (ASCP) Performed at: Performed By: #### 4 [id number] ####[facility] [address] [place] [address]Dr. Saulo Lynch Specimen adequacy: Comment Normal [facility] Comment on above: Result Comment: Sati sfactory for evaluation. Endocervical and/or squamous metaplastic cells (endocervical component) are present. Performed at: Performed By: #### 4 [id number] ####[facility] [address] [place] [address]Dr. Saulo Lynch CHLAMYDIA/GONOCOCCUS SRINIVASA (SW AB/URINE/PAPon 04-05-2022 Chlamydia trachomatis, SRINIVASA Negative Normal Negative [facility] Comment on above: Performed By: #### C T/NGNA #### [facility] [address] [place] [address] Dr. Saulo Lynch Neisseria gonorrhoeae, SRINIVASA Negative Normal Negative [facility] Comment on above: Performed By: #### C T/NGNA #### [facility] [address] [place] [address] Dr. Saulo Lynch VAGINITIS/VAGINOSIS DNA PROB Piotr 04-05-2022 Vale species Negative Normal Negative [facility] Comment on above: Performed By: #### V AGINT #### [facility] [address] [place] [address] Dr. Saulo Lynch Gardnerella vaginalis Negative Normal Negative [facility] Comment on above: Performed By: #### V AGINT #### [facility] [address] [place] [address] Dr. Saulo Lynch Trichomonas vaginalis Negative Normal Negative [facility] Comment on above: Performed By: #### V AGINT #### [facility] [address] [place] [address] Dr. Saulo Lynch CHLAMYDIA/GONOCOCCUS SRINIVASA (SW AB/URINE/PAPon 03-22-2022 Chlamydia trachomatis, SRINIVASA Negative Normal Negative [facility] Comment on above: Performed By: #### C T/NGNA ####[facility] [address] [place] [address]Dr. Saulo Lynch Neisseria gonorrhoeae, SRINIVASA Negative Normal Negative The [facility] Comment on above: Performed By: #### C T/NGNA ####[facility] [address] [place] [address]DrRyanne Lynch CULTURE URINEon 03-20-2022 CULTURE URINE Culture Observations : LIGHT GROWTH OF MIXED GENITAL NESTOR. NO POTENTIAL PATHOGENS SEEN. Normal The [facility] Comment on above: Performed By: #### U RCX ####[facility] [address] [place] [address]Dr. Saulo Lynch ER URINE PROFILEon Bilirubin Ql (U) Negative Normal NEGATIVE [facility] Comment on above: Performed By: #### DIAN BARRERA, PREGU #### [facility] [address] [address] [address] Saulo Lynch Clarity (U) CLEAR Normal CLEAR [facility] Comment on above: Performed By: #### DIAN BARRERA PREGU #### [facility] [address] [address] [address] Saulo Lynch Color (U) LT. YELLOW Normal YELLOW [facility] Comment on above: Performed By: #### DIAN BARRERA PREGU #### [facility] [address] [address] [address] Saulo Lynch ERUAHLouie A micrscopic examination will be performed if indicated. Normal [facility] Comment on above: Performed By: #### DIAN BARRERA PREGU #### [facility] [address] [address] [address] Saulo Lynch Glucose Ql (U) Negative Normal NEGATIVE [facility] Comment on above: Performed By: #### Janki RURDIAN, PREGU #### [facility] [address] [address] [address] Saulo Lynch Hemoglobin Ql (U) Negative Normal NEGATIVE [facility] Comment on above: Performed By: #### E RUR, UMICRO, PREGU #### [facility] [address] [address] [address] Saulo Lynch Ketones Ql (U) Negative Normal NEGATIVE [facility] Comment on above: Performed By: #### E RUR, UMICRO, PREGU #### [facility] [address] [address] [address] Saulo Lynch LEUKOCYTES SMALL Abnormal NEGATIVE [facility] Comment on above: Performed By: #### E RUR, UMICRO, PREGU #### [facility] [address] [address] [address] Saulo Lynch Nitrite Ql (U) Negative Normal NEGATIVE [facility] Comment on above: Performed By: #### E RUR, UMICRO, PREGU #### [facility] [address] [address] [address] Saulo Lynch pH (U) 7.0 [pH] Normal 5-9 [facility] Comment on above: Performed By: #### E RUR, UMICRO, PREGU #### [facility] [address] [address] [address] Saulo Lynch SPEC GRAVITY 1.020 Normal 1.005-<=1.025 [facility] Comment on above: Performed By: #### E RUR, UMICRO, PREGU #### [facility] [address] [address] [address] Saulo Lynch UA PROTEIN Negative Normal NEGATIVE/ TRACE [facility] Comment on above: Performed By: #### E RUR, UMICRO, PREGU #### [facility] [address] [address] [address] Saulo Lynch UR MICRO IND INDICATED Normal [facility] Comment on above: Performed By: #### E RUR, UMICRO, PREGU #### [facility] [address] [place] [address] Dr. Saulo Lynch Urobilinogen Qn (U) 0.2 {Claude'U}/dL Normal 0.2 - 1. 0 [facility] Comment on above: Performed By: #### DIAN BARRERA, PREGU #### [facility] [address] [address] [address] Saulo Lynch URon 03-20-2022 , QUAL Negative Normal NEGATIVE [facility] Comment on above: Performed By: #### DIAN BARRERA, PREGU ####[facility] [address] [place] [address]Dr. Saulo Lynch URINE MICROSCOPIC ONLYon BACTERIA TRACE Abnormal NONE SEEN The [facility] Comment on above: Performed By: #### DIAN BARRERA PREGU ####[facility] [address] [place] [address]Dr. Saulo Lynch Bacteria identified Cx Nom (U) INDICATED Normal [facility] Comment on above: Performed By: #### DIAN BARRERA, PREGU ####[facility] [address] [place] [address]Dr. Saulo Lynch CAST NONE SEEN Normal NONE SEEN The [facility] Comment on above: Performed By: #### DIAN BARRERA, PREGU ####[facility] [address] [place] [address]Dr. Saulo Lynch Crystals LM Nom (Urine sed) NONE SEEN Normal NONE SEEN The [facility] Comment on above: Performed By: #### DIAN BARRERA, PREGU ####[facility] [address] [place] [address]Dr. Saulo Lynch Epithelial cells LM Ql (Urine sed) FEW Abnormal NONE SEEN /RARE [facility] Comment on above: Performed By: #### DIAN BARRERA, PREGU ####[facility] [address] [place] [address]Dr. Saulo Lynch MUCOUS NONE SEEN Normal NONE SEEN The [facility] Comment on above: Performed By: #### Janki RUDIAN Schulz, PREGU ####[facility] [address] [place] [address]Dr. Saulo Lynch RBC NONE SEEN Abnormal 0-2 The [facility] Comment on above: Performed By: #### E DIAN BACH PREGU ####[facility] [address] [place], [place] [address]Oj. Saulo Lynch WBC 2-5 Abnormal NONE SEEN The [facility] Comment on above: Performed By: #### E RURDIAN, PREGU ####[facility] [address] [place], [place] [address]Va. Saulo Lynch COVID Quick Testingon 2021 Result Negative [facility] Other Quick Strepon 11-06-2021 S. pyogenes Org specific cx Ql (Throat) Negative [facility] Other Quick Strep [facility] Other Vital Signs Date Time Vital Sign Value Performing Clinician Facility 11-19-2022 09:25-0400 Body height 167.64 cm Maria Luz Ford Other [facility] Other 11-19-2022 09:25-0400 Body mass index (BMI) [Ratio] 24.37 kg/m2 Maria Luz Ford Other [facility] Other 11-19-2022 09:25-0400 Body temperature 98.3 [degF] Maria Luz Ford Other [facility] Other 11-19-2022 09:25-0400 Body weight 68.49 kg Maria Luz Ford Other [facility] Other 11-19-2022 09:25-0400 Respiratory rate 18 /min Maria Luz Ford Other [facility] Other 11-19-2022 09:25-0400 SaO2% (BldA) [Mass fraction] 99 % Maria Luz Ford Other [facility] Other 11-06-2021 13:15-0400 Body height 167.64 cm Eli Collzao Other [facility] Other 11-06-2021 13:15-0400 Body mass index (BMI) [Ratio] 25.01 kg/m2 Eli Collazo Other [facility] Other 11-06-2021 13:15-0400 Body temperature 99.1 [degF] Eli Collazo Other [facility] Other 11-06-2021 13:15-0400 Body weight 70.31 kg Eli Collazo Other [facility] Other 11-06-2021 13:15-0400 Respiratory rate 18 /min Eli Collazo Other [facility] Other 11-06-2021 13:15-0400 SaO2% (BldA) [Mass fraction] 99 % Eli Collazo Other [facility] Other Encounters Encounter Date Encounter Type Care Provider Facility Start: 02-10-2024 End: 02-10-2024 Departed Referred DO Oleg Harrison Work Phone: [facility] Start: 02-10-2024 End: 02-10-2024 ambulatory OLEG HARRISON Not Available Start: 01-22-2024 End: 01-22-2024 ambulatory PERLA MONTEIRO Not Available Start: 10-14-2023 End: 10-14-2023 ambulatory OLEG HARRISON Not Available Start: 11-19-2022 End: 11-19-2022 ambulatory Maria Luz Ford Other [facility] Other Start: 11-19-2022 Office outpatient vi sit [...] 11-06-2021 End: 11-06-2021 ambulatory Eli Collazo Other [facility] Other Start: 11-06-2021 Office outpatient vi sit 15 minutes Eli Collazo [facility] [place] Plan of Treatment Date Care Activity Detail Author Start: 02-10-2024 [facility] Payers Date Payer Category Payer Self-pay 2022 Medicaid [id number] 1985 Unknown [id number] 2.16.84 0.1.035139.3.579.2.593 1985 Unknown [id number] 2.16.84 0.1.905516.3.579.2.593 1987 Unknown [id number] 2.16.84 0.1.556829.3.579.2.593 1987 Unknown [id number] 2.16.84 0.1.285578.3.579.2.593 1987 Unknown [id number] 2.16.84 0.1.500406.3.579.2.593 1987 Unknown [id number] 2.16.84 0.1.543405.3.579.2.593 1987 Unknown [id number] 2.16.84 0.1.369238.3.579.2.593 1987 Unknown [id number] 2.16.84 0.1.217591.3.579.2.593 1987 Unknown [id number] 2.16.84 0.1.586575.3.579.2.593 1987 Unknown [id number] 2.16.84 0.1.350359.3.579.2.593 1987 Unknown [id number] 2.16.84 0.1.558600.3.579.2.593 1987 Unknown [id number] 2.16.84 0.1.093868.3.579.2.593 1987 Unknown [id number] 2.16.84 0.1.014552.3.579.2.593 1987 Unknown [id number] 2.16.84 0.1.367398.3.579.2.593 1987 Unknown [id number] 2.16.84 0.1.205038.3.579.2.593 1987 Unknown [id number] 2.16.84 0.1.830232.3.579.2.593 1987 Unknown [id number] 2.16.84 0.1.519487.3.579.2.593 1987 Unknown [id number] 2.16.84 0.1.154675.3.579.2.593 1987 Unknown [id number] 2.16.84 0.1.294429.3.579.2.593 1987 Unknown [id number] 2.16.84 0.1.571659.3.579.2.1259 1987 Unknown [id number] 2.16.84 0.1.040255.3.579.2.1259 1987 Unknown [id number] 2.16.84 0.1.092792.3.579.2.1259 1959 Unknown [id number] 2.1 6.840.1.135355.19 1959 Unknown [id number] Social History Date Type Detail Facility Unknown if ever smoked [facility] Other Sex Assigned At Sex Assigned At Bir th [facility] Other Start: 1985 Sex Assigned At Female F [facility] Evaluation note 11-19-2022 Note Date & Type [...] fever. Patient verbalized understanding of treatment plan. [facility] Other Evaluation note 11-06-2021 Note Date & [...] Patient care instructions given in writting by [facility] Home document. [facility] Other Evaluation note Note Date & Type Note Facility Evaluation note No assessment information availa [facility] Work Phone: History general Narrative - Reported Note Date & Type Note Facility History general Narrative - Reported Type Surgical History tubal ligation Surgical History right leg and ankle [facility] Other History general Narrative - Reported Note Date & Type Note Facility History general Narrative - Reported Type Medical History Adult acne Surgical History tubal ligation Surgical History right leg and ankle Surgical History wisdom teeth [facility] Other Summary Purpose Family History No Family [...] DATE CREATED AUTHOR AUTHOR'S ORGANIZ ATION 02/11/2024 [facility] EPIC DATE CREATED AUTHOR AUTHOR'S ORGANIZ ATION 02/19/2024 [facility] Care Teams (unrecognized sec tion [...] BE BASED ON THE PRIMARY CLINICAL RECORDS. [employer] provides no warranty or guarantee of the accuracy or completeness of information in this document.
== END 2024-02-10 11:02 | disposition home or self-care (01) ==
LOC: LAB 11:01
PROVIDERS: PCP Nurse Practitioner Family; Visit Provider Obstetrics & Gynecology
DX: N84.0 Polyp of corpus uteri (principal)
CPT/HCPCS: 88305

== ENCOUNTER 2024-12-03 11:11 | Outpatient (OUT) | payer MEDICAID, SELFPAY ==
--- NOTE | 2024-12-03 11:18 | XR_ITS ---
[facility] [place] [id number] Patient Name: ALBINO DAVILA MRN: [id number] date: 1985 Sex: F Assigned Patient Location: [facility] Current Patient Location: [facility] Accession/Order Number: [id number] Exam Date: 12/03/2024 12:12 Report Date: 12/03/2024 12:17 At the request of: VANDANA MENJIVAR Procedure: XR abdomen 1V SINGLE VIEW ABDOMEN COMPARISON: None CLINICAL DATA: Chronic constipation Supine view the abdomen the hand pelvis was obtained. There is air at the ascending and transverse colon. There is mild stool at the descending and sigmoid colon. There is no dilated small bowel. No soft tissue masses or suspect renal calculi are noted. There is suggestion of potential linear air at the right upper quadrant. It is uncertain if this could be biliary in origin. Clinical correlation will be needed given the lack of previous imaging and limited history. There is a tampon within the vagina. There tubal ligation clips are seen. Subtle levoscoliotic curvature is noted. XR/XR abdomen 1V IMPRESSION: NONOBSTRUCTIVE BOWEL GAS PATTERN WITH MILD LEFT-SIDED COLONIC STOOL. EQUIVOCAL BILIARY AIR AT THE RIGHT UPPER QUADRANT. CLINICAL CORRELATION IS SUGGESTED WITH FOLLOW-UP CT IMAGING IF CLINICALLY WARRANTED. Impression dictated by: Sarah Mccall M.D. 12/03/2024 12:17 PM Dictation Location: [place] [address] Electronically authenticated by: [id number] Y Date: 12/03/2024 12:17
== END 2024-12-03 11:12 | disposition home or self-care (01) ==
LOC: RAD 11:13
PROVIDERS: PCP Nurse Practitioner Family; Visit Provider Nurse Practitioner Family
DX: K59.09 Other constipation (principal)
CPT/HCPCS: 74018

== ENCOUNTER 2025-05-18 15:18 | Outpatient (REF) | payer MEDICAID, SELFPAY ==
--- OUTSIDE RECORDS SUMMARY | 2025-05-18 15:22 | XMS_ITS | CCD ---
Author Organization [facility] Care Team Providers Care Package Line Operator Name Role Phone Eli Collazo Unavailable RIA, DR ROMANO Primary Care Unavailable WEST, DR GORDY Garcia Attending Unavailable WEST, DR GORDY Garcia Consulting Unavailable WEST, DR GORDY Garcia Admitting Unavailable LUIS, ANDRZEJ Schulz Consulting Unavailable HOUSE, DR ROMANO Primary Care Unavailable KARASISimran ., DR COLINDRES Consulting Unavailabl e KARASIK ., DR COLINDRES Admitting Unavailabl e KARASIK ., DR COLINDRES Attending Unavailabl e HOUSE, [...] Unavailable HOUSE, DR ROMANO Primary Care Unavailable ANGE ., TORRES Attending Unavailable ANGE ., TORRES Admitting Unavailable ANGE ., TORRES Consulting Unavailable HOUSE, DR ROMANO Primary Care Unavailable HOUSE, DR [...] DR GORDY Garcia Consulting Unavailable ZIEBMINH, ANDRZEJ Schulz Consulting Unavailable HOUSE, DR ROMANO Primary Care Unavailable WEST, DR GORDY Garcia Admitting Unavailable WEST, DR GORDY Garcia Attending Unavailable WEST, DR GORDY Garcia Consulting Unavailable ZIEBMINH, ANDRZEJ Schulz Consulting Unavailable HOUSE, DR ROMANO Primary Care Unavailable WEST, DR GORDY Garcia Admitting Unavailable WEST, DR GORDY Garcia Attending Unavailable WEST, DR GORDY Garcia Consulting Unavailable ZIEBMINH, ANDRZEJ Schulz Consulting Unavailable HOUSE, DR ROMANO [...] Consulting Unavailable JAVIEREBMINH, ANDRZEJ Schulz Consulting Unavailable [place], DR ROMANO Primary Care Unavailable WEST, DR GORDY Garcia Admitting Unavailable WEST, DR GORDY Garcia Attending Unavailable WEST, DR GORDY Garcia Consulting Unavailable JAVIEREBMINH, ANDRZEJ Schulz Consulting Unavailable [place], DR ROMANO Primary Care Unavailable WEST, DR [...] Consulting Unavailable LUIS, ANDRZEJ R Consulting Unavailable [place], DR ROMANO Primary Care Unavailable WEST, DR GORDY Garcia Attending Unavailable WEST, DR GORDY Garcia Admitting Unavailable WEST, DR GORDY Garcia Consulting Unavailable LUIS, ANDRZEJ R Consulting Unavailable [place], DR ROMANO Primary Care Unavailable WEST, DR GORDY Garcia Admitting Unavailable WEST, DR GORDY Garcia Attending Unavailable WEST, DR GORDY Garcia Consulting Unavailable LUIS, ANDRZEJ R Consulting Unavailable Maria Luz Ford Unavailable OLEG HARRISON Attending Unavailable LOLY MONTEIRO Attending Unavailable OLEG HARRISON Attending Unavailable DO Oleg Harrison Attending Provider Oleg Harrison Attending Unavailable Oleg Harrison Admitting Unavailable Unavailable Primary Care Provider Unavailabl e Allergies Allergy ClassificationReported Allergen(s)Allergy TypeDate of OnsetReaction(s) Facility (4 sources)CiprofloxacinDrug Qlodtss67-36-0385mnnw, UnknownNort Patient Home Monitoring Other (2 sources)CiprofloxacinDrug Jiiglmh43-80-7538[facility] Rep[facility] (1 source)CiprofloxacinDrug Kctlvbu74-72-1617DgqtgqqhgGe[facility] Repository Medications Current Medications MedicationDrug Class(es)DatesSig (Normalized)Sig (Original)benzoyl peroxide 0.05 mg/mg / clindamycin phosphate 0.012 mg/mg topical gel (1 source)Lincosamide AntibacterialClindamycin Phos-Benzoyl Perox 1.2-5 % External for 30 Days Active Completed/Discontinued Medications MedicationDrug Class(es)DatesSig (Normalized)Sig (Original)sulfacetamide sodium 100 mg/ml topical lotion (1 source)Sulfonamide AntibacterialSulfacetamide Sodium (Acne) 10 % APPLY TO FACE EVERY NIGHT External for 30 Days Not-Taking Problems Active Problems Problem ClassificationProblemDateDocumented DateEpisodic/ChronicOther female genital disorders (1 source)Abnormal uterine bleeding; Translations: [Abnormal uterine and vaginal bleeding, unspecified]20-02-7657WdunygcZhbrr screening for suspected conditions (not mental disorders or infectious disease) (1 source)Endometrium thickened; Translations: [Abnormal findings on diagnostic imaging of other specified body structures]89-96-3986TbvegvrUxort upper respiratory disease (1 source)Allergic rhinitis, unspecifiedOnset: 11-06-2021 Resolved: 37-23-4240XfwklocPdrog upper respiratory infections (3 sources)Acute upper respiratory infection, unspecified; Translations: [Acute pharyngitis, unspecified]Onset: 11-06-2021 Resolved: 80-85-4274FpzqvsoiGymkgbtlt; thrombophlebitis and thromboembolism (9 sources)Phlebitis and thrombophlebitis of superficial vessels of right lower extremity; Translations: [Phlebitis and thrombophlebitis of superficial vessels of left lower extremity]Onset: 35-73-2036AgmwkqraVoznrbsbdnlx (1 source)ACUTE CANDIDIASIS VULVA AND VAGINA; Translations: [ACUTE CANDIDIASIS VULVA AND VAGINA]Onset: 83-43-0084Mqdhbeoo veins of lower extremity (5 sources)Varicose veins of bilateral lower extremities with pain; Translations: [VARICOSE VNS MIKE LOW EXTREMW/PAIN]Onset: 33-63-7107Cxhwwscj Past or Other Problems Problem ClassificationProblemDateDocumented DateEpisodic/ChronicImmunizations and screening for infectious disease (2 sources)Contact with and (suspected) exposure to other viral communicable diseases; Translations: [Encounter for screening for human papillomavirus (HPV)] Onset: 11-06-2021 Resolved: 27-77-8313PxjcrfrzMwbejuptetii diseases of female pelvic organs (1 source)Inflammatory disease of cervix uteri; Translations: [INFLAMMATORY DISEASE CERVIX UTERI]Onset: 57-93-4901PstswfjwYxhfooy (1 source)Candidiasis of vulva and vagina; Translations: [CANDIDIASIS OF VULVA AND VAGINA]Onset: 37-03-6119FzknbahlCqrjs aftercare (4 sources)Encounter for surgical aftercare following surgery on the circulatory system; Translations: [ENC SURG AFTRCARE FLW SURG CIRC SYS]Onset: 07-01-2022 EpisodicOther female genital disorders (1 source)Other specified noninflammatory disorders of vagina; Translations: [OTH SPEC NONINFLAMMATORY D/O VAGINA]Onset: 74-98-1853NiennhwqRonlk inflammatory condition of skin (3 sources)Pruritus vulvae; Translations: [PRURITUS VULVAE]Onset: 03-20-2022 EpisodicOther screening for suspected conditions (not mental disorders or infectious disease) (4 sources)Encounter for screening for malignant neoplasm of cervix; Translations: [ENC SCREENING MALIG NEOPLASM CERV]Onset: 00-87-7273Rppzeseg Screening and history of mental health and substance abuse codes (1 source)Personal history of nicotine dependence; Translations: [PERSONAL HISTORY OF NICOTINE DEPEND]Onset: 16-52-0186PvbqtbaxLyfmhzm and strains (4 sources)Strain of other muscles, fascia and tendons at shoulder and upper arm level, left arm, subsequent encounter; Translations: [STRN OTH MSC F TEND SHLDR UA LA SUB]Onset: 71-02-1154Xfxhrcju Results Test NameValueInterpretationReference RangeFacilityHCG ( test) Ql (U)on 36-73-2510Vxxiorypgzdhyc and review of laboratory resultsNormalNOMS Healthcare Preg Test, UrNegativeNOMS HealthcareNOMS HealthcarePathology Request for Lab Corpon 33-39-1416Ehtfwfzfm Request for Lab CorpNormalThe Unc Health Nash Physician GroupComment on above:Order Comment: PATHOLOGY EMB SPECIMENResult Comment: See report. Scanned copy available in EMR. PERFORMED BY: [place] [address] PATHOLOGIST SR. OPERATIONS MANAGER DARYL AGUILAR M.D.Performed By: #### PATH TO [facility] #### [place] [address] USAUS PELVIS W/ TRANSVAGINALon 74-37-0687[address] [address] Ultrasound Report Signed Patient: BERE DAVILA MR#: [id number] : 1985 Acct:[id number] Age/Sex: 38 / F ADM Date: 01/24/24 Loc: US Attending Dr: Loly Monteiro Ordering Physician: Loly Monteiro Date of Service: 01/24/24 Procedure(s): US pelvis w/ transvaginal Accession Number(s): [id number] cc: Loly Monteiro; ELI MENJIVAR [address] [address] Patient Name: BERE DAVILA MRN: [id number] date: 1985 Sex: F Assigned Patient Location: US Current Patient Location: Accession/Order Number: [id number] Exam Date: 01/24/2024 11:05 Report Date: 01/27/2024 09:05 At the request of: LOLY MONTEIRO Procedure: US pelvis w/ transvaginal EXAMINATION: US pelvis w/ transvaginal HISTORY: Menorrhagia with regular cycle N92.0 COMPARISON: No relevant comparison available. TECHNIQUE: Transabdominal and/or transvaginal sonographic examination was performed as indicated by examination type. FINDINGS: UTERUS: Normal size and appearance. Uterus size: 10.0 x 4.7 x 7.2 cm ENDOMETRIUM: Slightly thickened and heterogeneous containing several small hyperechoic areas, possibly calcifications. Endometrial thickness: 19 mm RIGHT OVARY: Normal size and appearance. Duplex Doppler demonstrates normal waveform and flow; resistive index 0.6. Ovary size: 2.8 x 2.3 x 1.67 m LEFT OVARY: Normal size and appearance. Duplex Doppler demonstrates normal waveform and flow; resistive index 0.6. Ovary size: 3.5 x 2.3 x 1.3 cm CUL-DE-SAC: Unremarkable. No significant free fluid. BLADDER: Unremarkable. OTHER: None. US/US pelvis w/ transvaginal IMPRESSION: 1. Thickened heterogeneous endometrium; nonspecific. Endometrial hyperplasia? 2. Unremarkable ovaries. Electronically authenticated by: ANDRZEJ العلي Date: 01/27/2024 09:05 Dictated By: Andrzej العلي M.D. Signed By: 01/27/24907 DD/ 4 TD/TT: Broke Beater:TBHRadiology, Radiologist, - 01/27/2024 [place] [address] Ultrasound Report Signed Patient: BERE DAVILA MR#: [id number] : 1985 Acct:[id number] Age/Sex: 38 / F ADM Date: 01/24/24 Loc: US Attending Dr: Loly Monteiro Ordering Physician: Loly Monteiro Date of Service: 01/24/24 Procedure(s): US pelvis w/ transvaginal Accession Number(s): [id number] cc: Loly Monteiro; ELI MENJIVAR [place] [address] Patient Name: BERE DAVILA MRN: [id number] date: 1985 Sex: F Assigned Patient Location: US Current Patient Location: Accession/Order Number: [id number] Exam Date: 01/24/2024 11:05 Report Date: 01/27/2024 09:05 At the request of: LOLY MONTEIRO Procedure: US pelvis w/ transvaginal EXAMINATION: US pelvis w/ transvaginal HISTORY: Menorrhagia with regular cycle N92.0 COMPARISON: No relevant comparison available. TECHNIQUE: Transabdominal and/or transvaginal sonographic examination was performed as indicated by examination type. FINDINGS: UTERUS: Normal size and appearance. Uterus size: 10.0 x 4.7 x 7.2 cm ENDOMETRIUM: Slightly thickened and heterogeneous containing several small hyperechoic areas, possibly calcifications. Endometrial thickness: 19 mm RIGHT OVARY: Normal size and appearance. Duplex Doppler demonstrates normal waveform and flow; resistive index 0.6. Ovary size: 2.8 x 2.3 x 1.67 m LEFT OVARY: Normal size and appearance. Duplex Doppler demonstrates normal waveform and flow; resistive index 0.6. Ovary size: 3.5 x 2.3 x 1.3 cm CUL-DE-SAC: Unremarkable. No significant free fluid. BLADDER: Unremarkable. OTHER: None. US/US pelvis w/ transvaginal IMPRESSION: 1. Thickened heterogeneous endometrium; nonspecific. Endometrial hyperplasia? 2. Unremarkable ovaries. Electronically authenticated by: ANDRZEJ العلي Date: 01/27/2024 09:05 Dictated By: Andrzej العلي M.D. Signed By: 01/27/24907 DD/ 4 TD/TT: Broke Beater: ANA HealthcareRadiology Study observation (narrative)NOM HealthcareUS PELVIS W/ TRANSVAGINALOrdered By: Radiologist Radiology on 93-41-0514Y[facility] Work Phone: Quick Strepon 11-19-2022S. pyogenes Org specific cx Ql (Throat)NegativeWeimob Other Quick StrepWeimob Other vc CONSULT FOLLOWUPon 06-27-9396QW CONSULT FOLLOWUP Patient: BERE DAVILA Exam Date: 10/23/2022 : 1985 Gender:F Ordering : DR GORDY KNOWLES M.D. Admission #: [id number] Family : Order #: [id number] CLICK HERE TO VIEW EXAM RADIOLOGY REPORT [...] by: Gordy Knowles MD on 10/23/2022 at 15:16[facility] EXT VENOUS RT LIMITEDon 38-32-5780LF EXT VENOUS RT LIMITEDPatient: BERE DAVILA Exam Date: 10/23/2022 : 1985 Gender:F Ordering : DR GORDY KNOWLES M.D. Admission #: [id number] Family : Order #: [id number] CLICK HERE TO VIEW EXAM RADIOLOGY REPORT [...] by: Gordy Knowles MD on 10/23/2022 at 14:45[facility]VC INJ FOAM SCLERO W US MLTIon 09-13-8329RO INJ FOAM SCLERO W US MLTIPatient: BERE DAVILA Exam Date: 10/14/2022 : 1985 Gender:F Ordering : DR GORDY KNOWLES M.D. Admission #: [id number] Family : Order #: [id number] CLICK HERE TO VIEW EXAM RADIOLOGY REPORT [...] deep veins, and tom (more content not included)...NormalMansfield HospitalVC CONSULT FOLLOWUPon 51-89-1669DL CONSULT FOLLOWUPPatient: LEESA DAVILABY Amy. Exam Date: 10/07/2022 : 1985 Gender:F Ordering : DR GORDY KNOWLES M.D. Admission #: [id number] Family : Order #: [id number] CLICK HERE TO VIEW EXAM RADIOLOGY REPORT [...] by: Gordy Knowles MD on 10/07/2022 at 08:52[facility]VC EXT VENOUS LT LIMITEDon 89-24-7811HA EXT VENOUS LT LIMITEDPatient: GIOVANNIBERE Khalil. Exam Date: 10/07/2022 : 1985 Gender:F Ordering : DR GORDY KNOWLES M.D. Admission #: [id number] Family : Order #: [id number] CLICK HERE TO VIEW EXAM RADIOLOGY REPORT [...] by: Gordy Knowles MD on 10/07/2022 at 08:14[facility] INJ FOAM SCLERO W US MLTIon 05-29-1898HO INJ FOAM SCLERO W US MLTIPatient: BERE DAVILA Exam Date: 10/01/2022 : 1985 Gender:F Ordering : DR GORDY KNOWLES M.D. Admission #: [id number] Family : Order #: [id number] CLICK HERE TO VIEW EXAM RADIOLOGY REPORT [...] by: Andrzej العلي M.D. on 10/01/2022 at 12:03[facility]VC CONSULT FOLLOWUPon 45-63-6244HE CONSULT FOLLOWUPPatient: GIOVANNI BERE ReyesRyanne Exam Date: 09/30/2022 : 1985 Gender:F Ordering : DR GORDY KNOWLES M.D. Admission #: [id number] Family : Order #: [id number] CLICK HERE TO VIEW EXAM RADIOLOGY REPORT [...] by: Andrzej العلي M.D. on 09/30/2022 at 14:24[facility] EXT VENOUS LT LIMITEDon 50-42-9383KB EXT VENOUS LT LIMITEDPatient: LEESA DAVILABY Amy. Exam Date: 09/30/2022 : 1985 Gender:F Ordering : DR GORDY KNOWLES M.D. Admission #: [id number] Family : Order #: [id number] CLICK HERE TO VIEW EXAM RADIOLOGY REPORT [...] by: Andrzej العلي M.D. on 09/30/2022 at 14:22[facility]VC ENDOVENOUS ABL 1ST V LTon 71-12-4589NY ENDOVENOUS ABL 1ST V LT Patient: BERE DAVILA. Exam Date: 09/27/2022 : 1985 Gender:F Ordering : DR GORDY KNOWLES M.D. Admission #: [id number] Family : Order #: [id number] CLICK HERE TO VIEW EXAM RADIOLOGY REPORT [...] by: Gordy Knowles MD on 09/27/2022 at 14:34[facility] CONSULT FOLLOWUPon 43-94-5444CJ CONSULT FOLLOWUPPatient: BERE DAVILA. Exam Date: 09/23/2022 : 1985 Gender:F Ordering : DR GORDY KNOWLES M.D. Admission #: [id number] Family : Order #: [id number] CLICK HERE [...] by: Andrzej العلي M.D. on 09/23/2022 at 16:02[facility]VC EXT VENOUS RT LIMITEDon 94-24-0740BJ EXT VENOUS RT LIMITEDPatient: BERE DAVILA Exam Date: 09/23/2022 : 1985 Gender:F Ordering : DR GORDY KNOWLES M.D. Admission #: [id number] Family : Order #: [id number] CLICK HERE TO VIEW EXAM RADIOLOGY REPORT [...] by: Andrzej العلي M.D. on 09/23/2022 at 16:00[facility] ENDOVENOUS ABL 1ST V RTon 34-53-8182AD ENDOVENOUS ABL 1ST V RT Patient: BERE DAVILA Exam Date: 09/18/2022 : 1985 Gender:F Ordering : DR GORDY KNOWLES M.D. Admission #: [id number] Family : Order #: [id number] CLICK HERE TO VIEW EXAM RADIOLOGY REPORT [...] by: Gordy Knowles MD on 09/18/2022 at 10:04[facility] CONSULT FOLLOWUPon 44-29-6920QM CONSULT FOLLOWUPPatient: BERE DAVILA Exam Date: 09/16/2022 : 1985 Gender:F Ordering : DR GORDY KNOWLES M.D. Admission #: [id number] Family : Order #: [id number] CLICK HERE TO VIEW EXAM RADIOLOGY REPORT [...] by: Andrzej العلي M.D. on 09/16/2022 at 15:09[facility] EXT VENOUS LT LIMITEDon 98-57-3444ZM EXT VENOUS LT LIMITEDPatient: BERE DAVILARyanne Exam Date: 09/16/2022 : 1985 Gender:F Ordering : DR GORDY KNOWLES M.D. Admission #: [id number] Family : Order #: [id number] CLICK HERE TO VIEW EXAM RADIOLOGY REPORT [...] by: Andrzej العلي M.D. on 09/16/2022 at 15:00[facility] ENDOVENOUS ABL 1ST V LTon 61-29-9670OD ENDOVENOUS ABL 1ST V LT Patient: BERE DAVILA Exam Date: 09/10/2022 : 1985 Gender:F Ordering : DR GORDY KNOWLES M.D. Admission #: [id number] Family : Order #: [id number] CLICK HERE TO VIEW EXAM RADIOLOGY REPORT [...] by: Andrzej العلي M.D. on 09/10/2022 at 09:34[facility]VC CONSULT FOLLOWUPon 82-61-2629NI CONSULT FOLLOWUPPatient: GIOVANNIBERE Exam Date: 07/01/2022 : 1985 Gender:F Ordering : DR GORDY KNOWLES M.D. Admission #: [id number] Family : Order #: [id number] CLICK HERE TO VIEW EXAM RADIOLOGY REPORT [...] by: Gordy Knowles MD on 07/01/2022 at 14:59[facility] EXT VENOUS LT LIMITEDon 34-20-4006BU EXT VENOUS LT LIMITEDPatient: GIOVANNIEBRE Exam Date: 07/01/2022 : 1985 Gender:F Ordering : DR GORDY KNOWLES M.D. Admission #: [id number] Family : Order #: [id number] CLICK HERE TO VIEW EXAM RADIOLOGY REPORT [...] by: Gordy Knowles MD on 07/01/2022 at 14:20[facility] ENDOVENOUS ABL 1ST V LTon 88-67-7245PU ENDOVENOUS ABL 1ST V LTPatient: BERE DAVILA Exam Date: 06/28/2022 : 1985 Gender:F Ordering : DR GORDY KNOWLES M.D. Admission #: [id number] Family : Order #: [id number] CLICK HERE TO VIEW EXAM RADIOLOGY REPORT PROCEDURE: VEIN CENTER ENDOVENOUS ABLATION FIRST VEIN LEFT GREAT SAPHENOUS VEIN COMPARISON: None. INDICATIONS: Pain co-occurrent and due to varicose veins of bilateral legs I83.813 OPERATIVE REPORT: The risks and benefits of the procedure had been previously discussed, and were rediscussed at length. Informed written consent was obtained by and Estrada Campos assisted. Time out procedure [...] by: Gordy Knowles MD on 06/28/2022 at 13:10[facility] CONSULT FOLLOWUPon 30-08-2967RY CONSULT FOLLOWUPPatient: BERE DAVILA Exam Date: 06/13/2022 : 1985 Gender:F Ordering : DR GORDY KNOWLES M.D. Admission #: [id number] Family : Order #: [id number] CLICK HERE TO VIEW EXAM RADIOLOGY REPORT [...] by: Andrzej العلي M.D. on 06/13/2022 at 09:56[facility]VC EXT VENOUS RT LIMITEDon 69-72-6560WR EXT VENOUS RT LIMITEDPatient: BERE DAVILA Exam Date: 06/13/2022 : 1985 Gender:F Ordering : DR GORDY KNOWLES M.D. Admission #: [id number] Family : Order #: [id number] CLICK HERE TO VIEW EXAM RADIOLOGY REPORT [...] by: Andrzej العلي M.D. on 06/13/2022 at 09:52[facility]VC ENDOVENOUS ABL 1ST V RTon 11-53-2873JG ENDOVENOUS ABL 1ST V RT Patient: BERE DAVILA Exam Date: 06/10/2022 : 1985 Gender:F Ordering : DR GORDY KNOWLES M.D. Admission #: [id number] Family : Order #: [id number] CLICK HERE TO VIEW EXAM RADIOLOGY REPORT PROCEDURE: VEIN CENTER ENDOVENOUS ABLATION FIRST VEIN RIGHT COMPARISON: None. INDICATIONS: Pain co-occurrent and due to varicose veins of bilateral legs I83.813 OPERATIVE REPORT: The risks and benefits of the procedure had been previously discussed, and were rediscussed at length. Informed written consent was obtained by nj and Estrada Campos assisted. Time out procedure [...] by: Andrzej العلي M.D. on 06/10/2022 at 11:50[facility]VC COMP CONSULTATIONon 22-41-2272ZE COMP CONSULTATIONPatient: BERE DAVILA Exam Date: 05/15/2022 : 1985 Gender:F Ordering : DR GORDY KNOWLES M.D. Admission #: [id number] Family : Order #: [id number] CLICK HERE TO VIEW EXAM RADIOLOGY REPORT [...] vein, a dilated an incompetent left calf clinical quality rn vein, and numerous superficial branch saphenous varicosities.. [...] arterial disease 5. CEAP: C2, EP, AP, IA PLAN: 1. Continued use of compression stockings [...] by: Andrzej العلي M.D. on 05/15/2022 at 10:33[facility]VC VENOUS REFLUX MIKE [facility] 58-24-2388NJ VENOUS REFLUX MIKE LMTPatient: BERE DAVILA Exam Date: 05/15/2022 : 1985 Gender:F Ordering : DR GORDY KNOWLES M.D. Admission #: [id number] Family : Order #: [id number] CLICK HERE TO VIEW EXAM RADIOLOGY REPORT [...] thrombus. Compressibility: Normal. Flow: Deep venous reflux. Remelt Worker: Dist medial calf 4.9 mm with 1.9s [...] varicosities bilaterally. 3. Prominent left distal calf clinical quality rn with prominent reflux. 4. Consultation for endovascular venous ablation is recommended. Dictated by: Andrzej العلي M.D. on 05/15/2022 at 09:59 Approved by: Andrzej العلي M.D. on 05/15/2022 at 10:23[facility] ACOG PANEL 2: 30 to 65on 04-07-2022..NormalMansfield Hospital Comment on above:Result Comment: Performed at: [facility] Neu[facility] Instituteformed By: #### [id number] ####[facility] [address] [place], [place] [address]RmRyanne Saulo LynchNiko Gdln ACOG Wmgbohy91-91BgwmtdDofUniversity Hospitals Conneaut Medical CenterComment on above:Performed By: #### [id number] ####[facility] [address] [place], [place] [address]Dr. Saulo LynchDIAGNOSIS:CommentNationwide Children's Hospital on above:Result Comment: NEGATIVE FOR INTRAEPITHELIAL LESION OR MALIGNANCY. Performed at: BAPerformed By: #### [id number] ####[facility] [address] [place], [place] [address]Dr. Saulo LynchHPV AptimaNegativeNormal NegativeThe [facility] on above:Result Comment: This nucleic acid amplification test detects fourteen high-risk HPV types (16,18,31,33,35,39,45,51,52,56,58,59,66,68) without differentiation. Performed at: =GPerformed By: #### [id number] ####[place] [address]Dr. Saulo LynchMethodology:CommentNationwide Children's Hospital on above:Result Comment: This liquid based ThinPrep(R) pap test was screened with the use of an image guided system. Performed at: WBPerformed By: #### [id number] ####[place] [address]Dr. Saulo LynchNote:CommentNationwide Children's Hospital on above:Result Comment: The Pap smear is a screening test designed to aid in the detection of premalignant and malignant conditions of the uterine cervix. It is not a diagnostic procedure and should not be used as the sole means of detecting cervical cancer. Both false-positive and false-negative reports do occur. . Performed at: WBPerformed By: #### [id number] ####[facility] [address] [place], [place] [address]Dr. Saulo LynchPerformed by:CommentNationwide Children's Hospital on above:Result Comment: Jo Clifton, Experimental Display Builder (ASCP) Performed at: BAPerformed By: #### [id number] ####[facility] [address] [place], [place] [address]Dr. Yilan ChangSpecimen adequacy:Comment NormalMansfield HospitalComment on above:Result Comment: Satisfactory for evaluation. Endocervical and/or squamous metaplastic cells (endocervical component) are present. Performed at: BAPerformed By: #### [id number] ####[facility] [address] [place] [address]Dr. Saulo LynchCHLAMYDIA/GONOCOCCUS SRINIVASA (SWAB/URINE/PAPon 16-75-9147Dauqxvatm trachomatis, NAANegativeNormalNegativeOhiohealth Hardin Memorial Hospital HospitalComment on above:Performed By: #### CT/NGNA #### [facility] [address] [place] [address] [address] Saulo Kelsey gonorrhoeae, NAANegativeNormalNegativeMansfield HospitalComment on above:Performed By: #### CT/NGNA #### [facility] [address] [place] [address] [address] Saulo LynchVAGINITIS/VAGINOSIS DNA PROBEon 27-62-6904Xeszcfv speciesNegative NormalNegMagruder Memorial HospitalComment on above:Performed By: #### VAGINT #### [facility] [address] [place] [address] [address] Saulo Marcelinodnerella vaginalisNegativeAthensNegMagruder Memorial Hospital Comment on above:Performed By: #### VAGINT #### [facility] [address] [place] [address] [address] Saulo LynchTrichomonas vaginalisNegativeCrossroads Regional Medical CenteralNegMagruder Memorial Hospital Comment on above:Performed By: #### VAGINT #### [facility] [address] [place] [address] [address] Saulo VasquezAMYDIA/GONOCOCCUS SRINIVASA (SWAB/URINE/PAPon 59-58-4518Xgibncvkl trachomatis, NAANegativeNormalNegativeMansfield HospitalComment on above: Performed By: #### CT/NGNA ####[facility] [address] [place] [address]Dr. Saulo LynchNeisseria gonorrhoeae, NAANegative NormalNegativeMansfield HospitalComment on above:Performed By: #### CT/NGNA ####[facility] [address] [address]DrRyanne LynchCULTURE URINEon 40-26-8825UGMXZYA URINECulture Observations: LIGHT GROWTH OF MIXED GENITAL NESTOR. NO POTENTIAL PATHOGENS SEEN.NormalOhiohealth Hardin Memorial Hospital HospitalComment on above:Performed By: #### URCX ####[facility] [address] [address]DrRyanne Vernon ChangER URINE PROFILEon 70-42-8787Laimwbreg Ql (U)NegativeNormalNEGCleveland Clinic Marymount Hospital Comment on above:Performed By: #### EBRVALENTINEICAMISHA, PREGU #### [facility] [address] [address] [address] Saulo LynchClarity (U)CLEARNormalCLEARMansfield HospitalComment on above: Performed By: #### EBRVALENTINEICRO, PREGU #### [facility] [address] [address] [address] Saulo Escobar (U)LT. YELLOWNormalYELLOWMansfield HospitalComment on above:Performed By: #### EBRVALENTINEICAMISHA, PREGU #### [facility] [address] [address] [address] Saulo Cornell micrscopic examination will be performed if indicated. NormalMansfield HospitalComment on above:Performed By: #### EBR UMICRO, PREGU #### [facility] [address] [address] [address] Saulo LynchGlucose Ql (U)NegativeNormalNEGATIVEMansfield HospitalComment on above:Performed By: #### ERUR UMICRO, PREGU #### [facility] [address] [address] [address] Saulo LynchHemoglobin Ql (U)NegativeNormalNEGCleveland Clinic [facility]mount Hospital Comment on above:Performed By: #### ERUR UMICRO, PREGU #### [facility] [address] [address] [address] Saulo Matthews Ql (U)NegativeNormalNEGATIVEThe [facility] GeneralComment on above:Performed By: #### DIAN POLANCO, PREGU #### [facility] [address] [address] [address] Saulo BuckOCYTESSMALLAbnormalNEGATIVEThe [facility] GeneralComment on above:Performed By: #### DIAN POLANCO, PREGU #### [facility] [address] [address] [address] Saulo Baumann Ql (U)NegativeNormalNEGATIVEThe [facility] GeneralComment on above:Performed By: #### DIAN POLANCO, PREGU #### [facility] [address] [place] [address] Dr. Saulo LynchpH (U)7.0 [pH]Normal5-9The [facility] GeneralComment on above: Performed By: #### DIAN POLANCO PREGU #### [facility] [address] [place] [address] Dr. Saulo LynchSPEC GRAVITY1.859Dcztnw9.005-<=1.025The [facility] GeneralComment on above:Performed By: #### DIAN POLANCO PREGU #### [facility] [address] [place] [address] Dr. Saulo LynchUA PROTEINNegativeNormalNEGATIVE/ TRACEThe [facility] Comment on above:Performed By: #### DIAN POLANCO PREGU #### [facility] [address] [place] [address] Dr. Saulo Lopez MICRO INDINDICATEDNormalThe [facility] GeneralComment on above: Performed By: #### DIAN POLANCO, PREGU #### [facility] [address] [place] [address] Dr. Saulo Browninogen Qn (U)0.2 {Claude'U}/dLNormal0.2 - 1.0The [facility] HospitalComment on above:Performed By: #### DIAN POLANCO PREGU #### [facility] [address] [address] [address] Saulo LynchPREGNANCY URon 29-06-4602OOIOMGRLO, QUALNegativeNormalNEGATIVEThe [facility] GeneralComment on above:Performed By: #### ERUR, UMICRO, PREGU ####[facility] [address] [address]Dr. Saulo LynchURINE MICROSCOPIC ONLYon 47-13-1712FHUMGRZDZCIAGAootyiniLUYY SEENThe [facility] GeneralComment on above:Performed By: #### ERUR, UMICRO, PREGU ####[facility] [address] [address]Dr. Saulo LynchBacteria identified Cx Nom (U)INDICATEDUniversity Hospitals Conneaut Medical Center Comment on above:Performed By: #### ERUR, UMICRO, PREGU ####[facility] [address] [address]Dr. Saulo LynchCASTNONE SEEN NormalNONE SEENMansfield HospitalComment on above:Performed By: #### EBR, UMICRO, PREGU ####[facility] [address] [address]Dr. Saulo LynchCrystals LM Nom (Urine sed)NONE SEENNormalNONE SEENThe [facility] GeneralComment on above:Performed By: #### ERUR, UMICRO, PREGU ####[facility] [address] [address]Dr. Saulo ChangEpithelial cells LM Ql (Urine sed)FEWAbnormalNONE SEEN /RAREThe [facility] GeneralComment on above:Performed By: #### ERUR, UMICRO, PREGU ####[facility] [address] [address]Dr. Saluo ChangMUCOUSNONE SEENNormalNONE SEENMansfield HospitalComment on above: Performed By: #### ERUR, UMICRO, PREGU ####[facility] [address] [place] [address]Dr. Saulo LynchRBCNONE SEENAbnormal0-2Mansfield HospitalComment on above:Performed By: #### DIAN POLANCO PREGU ####[facility] [address] [place], [place] [address]Va. Saulo LynchWBC2-5AbnormalNONE SEENMansfield HospitalComment on above: Performed By: #### DIAN POLANCO PREGU ####[facility] [address] [place], [place] [address]Gy. Saulo Brink Quick Testingon 11-06-[address] [facility] Patient Home Monitoring Other Quick Strepon 11-06-2021. pyogenes Org specific cx Ql (Throat)NegativeNineveh Patient Home Monitoring Other Quick Strep5gig Other Vital Signs Date TimeVital SignValuePerforming RevembtiaHpdfludu35-45-8571 10:39-0400Body mass index (BMI) [Ratio]22.02 kg/v7Puovi TrackDuck Work Phone: [facility] Wigkidbcmf42-78-2112 10:39-0400Body .87 kgCoreMegathread Work Phone: [facility] Nasdcuupdq06-65-5991 10:39-0400Diastolic blood iqbnqchn91 mm[Hg][employer] Work Phone: [facility] Biezwhdmwy04-64-0026 10:39-0400Systolic blood rlfhvohe187 mm[Hg][employer] Work Phone: [employer] BiosciencesBqhjvtkkzz85-54-0902 09:25-0400Body ozwfpg586.64 Felix Ford Other [employer] Other 05-30-2023 09:25-0400Body mass index (BMI) [Ratio] 24.37 kg/c2OosegtMaria Luz Ford Other [employer] Other 05-30-2023 09:25-0400Body .3 [degF]Maria Luz Ford Other [employer] Other 05-30-2023 09:25-0400Body jvpycc21.49 kgMaria Luz Ford Other [facility] Other 05-30-2023 09:25-0400Respiratory rate18 /minMaria Luz Ford Other [employer] Other 05-30-2023 09:25-0041MwX5% (BldA) [Mass fraction]99 % Maria Luz Ford Other [employer] Other 05-17-2022 13:15-0400Body nnfolh122.64 cmPamela Vale Other [employer] Other 05-17-2022 13:15-0400Body mass index (BMI) [Ratio] 25.01 kg/k4Ojgxoo Dymond Other [facility] Other 05-17-2022 13:15-0400Body buirrmxjawi02.1 [degF]Eli Collazo Other [employer] Other 05-17-2022 13:15-0400Body bhydkd60.31 kgPaeddie Collazo Other [employer] Other 05-17-2022 13:15-0400Respiratory rate18 /minEli Collazo Other [employer] Other 05-17-2022 13:15-9265XeY9% (BldA) [Mass fraction]99 % Eli Collazo Other [facility] Patient Home Monitoring Other Encounters Encounter DateEncounter TypeCare ProviderFacilityStart: 02-10-2024 End: 62-70-9060Vkjanki encounter procedureCorey Christy DO Work Phone: [facility] OBComment on above:Abnormal uterine bleeding (AUB); Thickened endometriumStart: 02-10-2024 End: 13-73-9168Gcramajx ReferredDO Olegdaniel Roacho Work Phone: [facility] Path Spec [place] HospStart: 02-10-2024 End: 08-20-7471wzjenzihajZFITZ FAZIONot AvailableStart: 01-27-2024 End: 80-29-9303Ygkqsiyqj Result EncounterAmy Thania EMERSON Work Phone: noms External Department UnsolicitedStart: 01-27-2024 End: 47-93-3838Xyevffhkn Result EncounterAmy Thania EMERSON Work Phone: noms External Department UnsolicitedStart: 01-22-2024 End: 52-06-9232sdntavtbfuIBK THANIANot AvailableStart: 10-14-2023 End: 57-42-1737tphteweiodSDZID FAZIONot AvailableStart: 11-19-2022 End: 78-61-7650pmrdcbkjarGsunan Bailey Other [facility] Patient Home Monitoring Other Start: 60-71-1311Lqands outpatient visit 15 minutes Maria Luz [facility] ClydeStart: 99-70-1074pujnafusicBP [facility] [place] Facility:X1Rmwgy: 10-23-2022 End: 89-19-3599xoazhdpcilXD [facility] [place] [facility]ONFacility:F2Sqvwp: 10-14-2022 End: 52-56-1060ehatghorzxKS [facility]LES [place] HUDSONFacility:Y6Fisax: 10-07-2022 End: 04-78-1304mazcggapkvBV [facility] HOUSEFacility:M2Ycgtw: 10-01-2022 End: 75-89-6702uaznaudfjgWJ [facility] HOUSEFacility:A8Strwm: 09-30-2022 End: 82-56-6571ahvwxozkfoNJ [facility] HOUSEFacility:B9Zcimx: 09-27-2022 End: 14-13-1560dafynnbuboJX [facility] HOUSEFacility:W7Hyvtk: 09-23-2022 End: 41-69-2613mfyhxqodadWO [facility] HOUSEFacility:L0Xvkyq: 09-18-2022 End: 99-90-2430zfrtdmehxfNV [facility] HOUSEFacility:Y8Twdpr: 09-16-2022 End: 50-11-9981nvhewwammhDQ [facility] HOUSEFacility:J1Pvdbd: 09-10-2022 End: 89-80-0134vujpjbtvamLR [facility] HOUSEFacility:F7Pzibn: 07-01-2022 End: 22-36-3547zhiefmwsmyQA [facility] HOUSEFacility:X8Gbgus: 06-28-2022 End: 47-90-3480oqvjhjxzclHZ [facility] HOUSEFacility:X2Ffmby: 06-13-2022 End: 92-01-6583zptaonijxrVH [facility] HOUSEFacility:M7Fkcpu: 06-10-2022 End: 28-90-5980yhparybsbwHG [facility] HOUSEFacility:K6Xinkg: 05-15-2022 End: 49-30-8419nfigexetqeUP [facility] HOUSEFacility:W6Anpph: 04-02-2022 End: 50-61-5285szkwhwqslmGE [facility] HOUSEFacility:C3Mvzai: 03-20-2022 End: 33-88-9997usyzghahvfVB [facility] HOUSEFacility:X3Zkkbd: 01-01-2022 End: 75-49-5125edntqfmbmwQY [facility] HOUSEFacility:T8Jtdxm: 11-06-2021 End: 59-20-9797foymqisdjaSvmqit Dymond Other [facility] Patient Home Monitoring Other Start: 03-76-9768Hfvmgk outpatient visit 15 minutes Eli CollazoFPArpit Ur[facility] Dhruv Procedures DateProcedureProcedure DetailPerforming ClinicianStart: 56-54-4922Aaumh test visual color cmprsn methsCorey Christy DO Work Phone: Start: 24-86-6557ZO PELVIS W/ TRANSVAGINALAmy Thania EMERSON Work Phone: Plan of Treatment DateCare ActivityDetailAuthorStart: 05-18-2025 End: 97-04-6990Jeeqgfw encounter wguchkevr69/26/2025 1:00 PM EST Procedure Visit NOMMisha JOHN [address] [place] [id number] Loly Monteiro PA [address] [place], [place] [id number] NOMMisha Blanton OBGYNStart: 02-10-2024 [facility]Bi[facility]riumBiopsy endometrium Procedures Routine Abnormal uterine bleeding (AUB) Ordered: 02/10/2024[facility] Work Phone: comment on above:Ordered: 02/10/2024 Payers DatePayer CategoryPayerPolicy [id number]-pay2023Medicaid [id number] [id number] 1986 [id number] 2..1.846728.3.57[id number] 2..1.994189.3.57[id number] 2..1.448070.3.57[id number] 2..1.392707.3.57[id number] 2..1.042862.3.57[id number] 2.16.840.1.268921.3.57[id number] 2.16.840.1.706079.3.57[id number] 2.16.840.1.868945.3.579.[id number] 2.16.840.1.361929.3.57[id number] 2.16.840.1.920843.3.579.[id number] 2.16.840.1.764321.3.579.2.70597-06-9305Axroizt5948862 2.840.1.697910.3.57[id number] 2.16840.1.344411.3.579.2.28135-99-9984Nlugzmc3085790 2.16840.1.422780.3.579.[id number] 2.16840.1.014878.3.57[id number] 2.16840.1.302199.3.579.2.68390-28-0695Ookbnyq8734825 2.16.840.1.720483.3.579.2.59967-73-5408Wvuepyr7610542 2.16.840.1.779916.3.579.2.19647-33-0750Fhedemk1844962 2.16.840.1.028741.3.579.2.04438-16-3014Sbwhhsu1884903 2.16840.1.075090.3.579.2.728582-03-2680Dufptce3880373 2.16.840.1.655280.3.579.2.889622-84-8333Pmvntnr2571440 2.16.840.1.449513.3.579.[id number] 2.16.840.1.645121.19 65-38-8119Azrfzvp160423912 Social History DateTypeDetailFacilityUnknown if ever smokedNomercy hospital st. john's Patient Home Monitoring Other Start: 79-96-2230Grs Assigned At [facility] Vurb Other Start: 19-15-4957Rgk [facility]igned At [facility] Centertart: 76-18-8354Lrhyxvy smoking status NHISEx-smokerNOOH Healthcare End: 00-16-7127Hjfkory of tobacco useCurrent smokerNOOH Healthcare End: 15-59-6317Wzizbcb of tobacco useCigarette SmokerNOOH HealthcareStart: 01-22-2024 End: 22-64-7067Oqrgorgip beverage intakeLifetime non-drinker (finding)NOMS HealthcareStart: 48-47-3282Ncticks of Social functionNOOH HealthcareStart: 27-03-4141Dgwcroi Commentcaffeine: 2-3 cups per dayNOOH HealthcareStart: 63-82-6336Uia assigned at [facility] hospitalNot on fileNOOH HealthcareStart: 16-85-6085Rpd FemaleNOOH Healthcare History of Present illness Narrative 02-10-2024 Note Date & PsmcStpaDqszwpsk18-04-0470 History of Present illness Narrative* Sarah Gong, GENEVA - 02/10/2024 10:30 AM EDT Reason for Appointment: Patient ID: Bere Davila is a 38 y.o. female who presents for Vaginal Bleeding and thickened endometrium Patient presents today for Acute Visit. MEDICATIONS No current outpatient medications ALLERGIES Allergies Allergen Reactions Ciprofloxacin Rash and Unknown Other Reaction(s): Unknown PROBLEMS Active Ambulatory Problems Diagnosis Date Noted No Active Ambulatory Problems Resolved Ambulatory Problems Diagnosis Date Noted No Resolved Ambulatory Problems Past Medical History: Diagnosis Date ETD (Eustachian tube dysfunction), left Pharyngitis Vertigo HISTORY PAST MEDICAL HISTORY SOCIAL HISTORY Past Medical History: Diagnosis Date ETD (Eustachian tube dysfunction), left Pharyngitis Vertigo Social History Tobacco Use Smoking status: Former Current packs/day: 0.00 Types: Cigarettes Quit date: 2008 Years since quittin.6 Smokeless tobacco: Not on file Substance Use Topics Alcohol use: Never Comment: caffeine: 2-3 cups per day Drug use: Not on file FAMILY HISTORY Family History Problem Relation Name Age of Onset Hypertension Father SURGICAL HISTORY Past Surgical History: Procedure Laterality Date [place] LEG/ANKLE SURGERY PROC UNLISTED Right 2001 leg/ankle surgery TUBAL LIGATION Bilateral 2015 REVIEW OF SYSTEMS Review of Systems: Review of Systems Constitutional: Negative. HENT: Negative. Eyes: Negative. Respiratory: Negative. Cardiovascular: Negative. Gastrointestinal: Negative. Genitourinary: Negative. Musculoskeletal: Negative. Skin: Negative. Neurological: Negative. All other systems reviewed and are negative. Hematological: Negative. Endocrine: Negative. Allergic/Immunologic: Negative. OBJECTIVE Objective: Physical Exam Constitutional: Appearance: Normal appearance. She is well-developed. Genitourinary: Vulva normal. Cardiovascular: Rate and Rhythm: Normal rate and regular rhythm. Pulmonary: Effort: Pulmonary effort is normal. Breath sounds: Normal breath sounds. Abdominal: General: Bowel sounds are normal. There is no distension. Palpations: Abdomen is soft. Tenderness: There is no abdominal tenderness. There is no guarding or rebound. Musculoskeletal: General: No swelling. Normal range of motion. Right lower leg: No edema. Left lower leg: No edema. Neurological: Mental Status: She is alert and oriented to person, place, and time. Skin: General: Skin is warm and dry. Psychiatric: Mood and Affect: Mood normal. Behavior: Behavior normal. Vitals and nursing note reviewed. Exam conducted with a medical registrar present. Vitals: Estimated body mass index is 22.02 kg/m as calculated from the following: Height as of 01/22/24: 5' 6 . Weight as of this encounter: 136 lb 6.4 oz. BP: 114/76 Patient's last menstrual period was 02/03/2024. ASSESSMENT & PLAN ICD-10-CM 1. Abnormal uterine bleeding (AUB) N93.9 POCT , urine manually resulted Biopsy endometrium 2. Thickened endometrium R93.89 EMBX: Patient was placed in dorsal lithotomy position with feet in stirrups. A sterile speculum was placed into the vagina and the cervix was visualized. The cervix was grasped with a single tooth tenaculum. The endometrial pipette was placed through the cervix into the uterus, endometrial curettage was performed and sampling was obtained, endometrial curettings were placed in formalin, and single tooth tenaculum was removed. Excellent hemostasis was assured. All instruments were removed from vagina.Previously discussed ablation and or slynd. Pt is considering tubal reversal- declines SUMMER referral at this time. Follow Up: Patient is to return Documented by Sarah Gong LPN on behalf of: Oleg Harrison DO documented [facility] note 11-19-2022 Note Date & GsiiRhevYptljuwq53-52-0212 Evaluation note* Encounter Date Diagnosis Assessment Notes Treatment Notes Treatment Clinical Notes October, Sore throat (ICD-10 - J02.9) Rapid strep negative. October,ND (post-nasal drip) (ICD-10 - R09.82)Discussed with patient reported symptoms and exam is [...] fever. Patient verbalized understanding of treatment plan. [facility] Other Evaluation note 11-06-2021 Note Date & OezwBgxcBahepsnp26-78-7886 Evaluation note* Encounter Date Diagnosis Assessment Notes Treatment Notes Treatment Clinical Notes October, Viral upper respiratory infectio n (ICD-10 - J06.9) October,llergic rhinitis, unspecified seasonality, unspecified trigger (ICD-10 - J30.9)Drink plenty fluids, get plenty of rest. Consider taking an antihistamine daily such as Zyrtec or Claritin for your symptoms. Take Tylenol Motrin for aches pains or fevers. Follow-up with your familyphysician if no improvement in 2 to 3 days. October,ontact with and (suspected) exposure to other viral communicable diseases (ICD-10 - Z20.828) October,therAdditional time spent conducting pre-visit phone call, screening for symptoms, instructions on social distancing, application and removal of PPE, and cleaning of examination room, equipment and supplies was preformed. Patient education given for testing methodology and results. Patient care instructions given in writting by [facility] Care At Home document. [facility] Other Evaluation note Note Date & TypeNoteFacilityEvaluation noteNo assessment information available [facility] Work Phone: Evaluation note Note Date & TypeNoteFacilityEvaluation note* Diagnosis Abnormal uterine bleeding (AUB) Thickened endometrium Nonspecific (abnormal) findings on radiological and other examination of genitourinary organs documented in this encounter [facility] History general Narrative - Reported Note Date & TypeNoteFacilityHistory general Narrative - Reported* Type Description Date Surgical History tubal ligation Surgical Historyright leg and ankle [facility] Other History general Narrative - Reported Note Date & TypeNoteFacilityHistory general Narrative - Reported* Type Description Date Medical History Adult acne Surgical Historytubal ligationSurgical Historyright leg and ankleSurgical Historywisdom teeth [facility] Other Summary Purpose Family History Relationship Condition Age at Onset Recorded Date/T brittney father Hypertension Unknown Advance Directives No Advanced Directives Records FoundNo Advanced Directives Records FoundNo Advanced Directives Records Found Additional Source Comments REASON FOR VISIT (unrecogniz ed section and content) ReasonCommentsVaginal Bleedingthickened endometrium INFORMATION SOURCE (unrecogn ized section and content) DATE CREATED AUTHOR 10/31/2022 [facility] DATE CREATED AUTHOR AUTHOR'S ORGANIZ ATION 02/11/2024 [facility] EPIC DATE CREATED AUTHOR AUTHOR'S ORGANIZ ATION 02/19/2024 [facility] Care Teams (unrecognized sec tion and content) Team Status: Inactive Member Role Status Dates Oleg Christy , DO Attending Provider Active Start : February [...] BE BASED ON THE PRIMARY CLINICAL RECORDS. [facility]. provides no warranty or guarantee of the accuracy or completeness of information in this document.
== END 2025-05-18 15:19 | disposition home or self-care (01) ==
LOC: LAB 15:18
PROVIDERS: PCP Nurse Practitioner Family; Visit Provider Physician Assistant
DX: Z01.419 Encounter for gynecological examination (general) (routine) without abnormal findings (principal)
CPT/HCPCS: 88175